=== PATIENT | male | born 1950 | race Caucasian/White ===

== ENCOUNTER 2016-11-23 18:46 | Inpatient (IN) | payer MEDICARE, MEDICAID ==
[~2016-11-23] VITALS: Ht 167.6 cm; Wt 64.9 kg
[2016-11-23] MEDS ORDERED: MAG HYDROX/AL HYDROX/SIMETH 30 ML UDC PO PRN (19:30)
[2016-11-23] MEDS ORDERED: MAGNESIUM HYDROXIDE 30 ML UDC PO PRN (19:30)
[2016-11-23 20:00] VITALS: BP 117/74
--- NOTE | 2016-11-23 20:00 | NUR ---
GPS SPEECH LANGUAGE SPECIALIST NOTES: ADMITTED A 66 YO CHILEAN SPEAKING MALE FROM [facility] ON 5150 HOLD FOR DTO AND GD. PER HOLD THE PATIENT HAS BEEN INCREASINGLY CONFUSED, PHYSICALLY AGGRESSIVE AND HOSTILE TOWARDS FAMILY MEMBERS, ATTEMPTED TO HIT THE WALL, EXPERIENCING VISUAL AND AUDITORY HALLUCINATION, TALKING TO THE WALL, RESPONDING TO INTERNAL STIMULI, PARANOID, DELUSIONAL, UNPREDICTABLE, LABILE. PATIENT BROUGHT INTO THE UNIT BY AMBULANCE STAFF VIA GURNEY.USHERED PATIENT TO BED. UPON FACE TO FACE ASSESSMENT, PATIENT NOTED TO BE ALERT AND ORIENTED X1. PATIENT IS OBSERVED TO BE RESTLESS, UNPREDICTABLE, GUARDED, RESPONDING TO INTERNAL STIMULI, PARANOID, DELUSIONAL. PATIENT UNABLE TO SIGN ADMISSION PAPERS. PATIENT THEN CHANGED TO HOSPITAL GOWN. SKIN AND BODY ASSESSMENT DONE WITH TAVO HERNANDEZ. PICTURES TAKEN AND PLACED IN THE CHART. BELONGINGS AND CONTRABAND CHECKED. Q15 MIN CHECKS INITIATED. CARE PLAN SPECIFIC INITIATED FOR THE PATIENT. LIMIT SETTING DONE. MADDIE OBREGON AND NAFISA INFORMED OF THE SAID ADMISSION. FAMILY NOTIFIED OF THE ADMISSION WELL THE UNIT AND HOSPITAL POLICIES. WILL ENDORSE PATIENT TO DAY SHIFT NURSE FOR CONTINUITY OF CARE.
[2016-11-23] MEDS ORDERED: MEMA10TA PO (20:05)
[2016-11-23] MEDS ORDERED: LATA2.5D2 EACHEYE (20:05)
[2016-11-23] MEDS ORDERED: ROSU20TA PO (20:05)
[2016-11-23] MEDS ORDERED: DORZ10DR11 EACHEYE (20:05)
[2016-11-23] MEDS ORDERED: ERGO500047 PO (20:05)
[2016-11-23] MEDS ORDERED: OLME40TA3 PO (20:05)
[2016-11-23] MEDS ORDERED: SITA1TAB6 PO (20:05)
[2016-11-23] MEDS ORDERED: ICOS1CAP PO (20:05)
[2016-11-23] MEDS ORDERED: CALC500T51 PO (20:05)
[2016-11-23] MEDS ORDERED: LURA40TA PO (20:05)
[2016-11-23] MEDS ORDERED: LATA2.5D2 LEFTEYE (20:05)
[2016-11-23] MEDS ORDERED: EMPA25TA PO (20:05)
[2016-11-23] MEDS ORDERED: TAMS0.4C34 PO (20:05)
[2016-11-23] MEDS ORDERED: EZET10TA PO (20:05)
[2016-11-23] MEDS ORDERED: METO-306 PO (20:05)
[2016-11-23] MEDS ORDERED: ESCI10TA PO (20:05)
[2016-11-23] MEDS ORDERED: DEXL60CA3 PO (20:05)
[2016-11-23] MEDS ORDERED: DUTA0.5C PO (20:05)
[2016-11-23] MEDS ORDERED: OLOP2.5D EACHEYE (20:05)
--- NOTE | 2016-11-23 21:37 | NUR ---
GUY SKELTON MADE AWARE OF THE ADMISSION AND GAVE ORDERS AND NOTIFIED TO RECONCILE MEDS.
[2016-11-23] MEDS: BLOOD SUGAR DIAGNOSTIC 1 EACH STRIP IN SCH (21:40)
[2016-11-23] MEDS ORDERED: DEXTROSE 50%-WATER 50 ML DISP.SYRIN IV PRN (22:00)
[2016-11-23] MEDS ORDERED: INSULIN REGULAR, HUMAN 100 UNIT/ML 10 ML VIAL ONE (22:38)
[2016-11-23] MEDS: INSULIN REGULAR, HUMAN 100 UNIT/ML 3 ML VIAL SQ PRN (22:54)
[2016-11-24] MEDS: BLOOD SUGAR DIAGNOSTIC 1 EACH STRIP IN SCH ×4 (07:57→21:30)
[2016-11-24 08:00] VITALS: BP 131/93
[2016-11-24] MEDS: INSULIN REGULAR, HUMAN 100 UNIT/ML 3 ML VIAL SQ PRN ×3 (08:06→21:32)
[2016-11-24] MEDS: LORAZEPAM 0.5 MG TABLET PO PRN ×2 (08:28→23:39)
--- NOTE | 2016-11-24 08:30 | NUR ---
GPS/RN PATIENT COMBATIVE, AGGRESSIVE, ANXIOUS, ADMINISTERED ATIVAN PO ORDERED, WILL CONTINUE TO MONITOR.
[2016-11-24] MEDS ORDERED: Z GUARD REMEDY 4 OZ OINT TP SCH (09:00)
[2016-11-24] MEDS: Z GUARD REMEDY 2 OZ OINT TP SCH (10:20)
--- NOTE | 2016-11-24 11:00 | NUR ---
GPS/RN PATIENT REFUSED MRSA, EXPLAINED RISKS AND BENEFITS, WILL CONTINUE TO ENCOURAGE TO COMPLY REGIMEN AND TREATMENTS.
[2016-11-24] MEDS: QUETIAPINE FUMARATE 25 MG TABLET PO SCH ×2 (11:10→16:14)
[2016-11-24] MEDS: MEMANTINE HCL 5 MG TABLET PO SCH ×2 (11:10→21:18)
--- NOTE | 2016-11-24 12:16 | NUR ---
Initial discharge plan: Pt lives with his Marika at [address] [place] [address] and per daughter, Sydni [phone] is able to return home when stablized. Pt. will be picked up by family. SW will follow up with MD and family and will help form safe and proper discharge.
--- NOTE | 2016-11-24 13:22 | NUR ---
WOUND CARE CONSULT:PATIENT SEEN AND SKIN ASSESSMENT DONE. PATIENT VERY CONFUSED, EASILY AGITATED AND UPSET, INCONTINENT, PASCUAL 15, ABLE TO TURN AND REPOSITION HOWEVER NEEDS ASSIST AND PROMPTING. SEE TODAY'S SKIN ASSESSMENT IN PCS ALONG WITH RECOMMENDATIONS. RECOMMEND MOISTURE PROTECTION WITH Z GUARD ORDERED, OFFLOADING FOR PRESSURE PREVENTION. ALL DISCUSSED WITH NURSING STAFF. MD IN AGREEMENT WITH PLAN OF CARE. Addendum: 11/24/16 at 1324 by STEPHANIE YUNG WNDNU Amended: Links added.
[2016-11-24] MEDS ORDERED: OLOPATADINE HCL 0.1% OPHTH BOTTLE EACHEYE SCH (14:00)
[2016-11-24] MEDS: EZETIMIBE 10 MG TABLET PO SCH (15:29)
[2016-11-24] MEDS: PANTOPRAZOLE 40 MG TABLET.DR PO SCH (15:29)
[2016-11-24] MEDS: DUTASTERIDE (0.5 MG) 0.5 MG CAPSULE PO SCH (15:29)
[2016-11-24] MEDS: CLOTRIMAZOLE 1% 15 GM TUBE TP SCH ×2 (15:30→17:00)
[2016-11-24 16:00] VITALS: BP 131/89
[2016-11-24 16:08] LABS: BASOPHILS % (AUTO) 0.3 % (0.0-2.0); EOSINOPHILS # (AUTO) 0.1 /CMM (0.0-0.7); EOSINOPHILS % (AUTO) 0.4 % (0.0-6.0); HEMATOCRIT 43 % (39-51); HEMOGLOBIN 14.8 g/dL (13.5-17.5); LYMPHOCYTES # (AUTO) 1.4 /CMM (0.8-4.8); LYMPHOCYTES % (AUTO) 11.1 % (20.0-44.0); MEAN CORPUSCULAR HEMOGLOBIN 30 PG (26.0-33.0); MEAN CORPUSCULAR HGB CONC 34 g/dl (31.0-36.0); MEAN CORPUSCULAR VOLUME 88 fL (80-96); MONOCYTES # (AUTO) 0.6 /CMM (0.1-1.30); NEUTROPHILS # (AUTO) 10.7 /CMM (1.8-8.9); NEUTROPHILS % (AUTO) 83.2 % (43.0-81.0); PLATELET COUNT (AUTO) 220 /CMM (150-450); RDW COEFFICIENT OF VARIATION 12.7 (11.5-15.0); RED BLOOD CELL COUNT(AUTO) 4.94 MIL/uL (4.5-6.0); WHITE BLOOD COUNT (AUTO) 12.8 K/uL (4.3-11.0)
[2016-11-24] MEDS: METFORMIN 500 MG TABLET PO SCH (16:14)
[2016-11-24] MEDS: OLOPATADINE HCL 0.1% OPHTH BOTTLE EACHEYE SCH (16:15)
[2016-11-24 16:26] LABS: CALCIUM, SERUM 9.7 mg/dL (8.5-10.1); CREATININE 0.9 mg/dL (0.6-1.3); POTASSIUM 3.8 mmol/L (3.5-5.1)
[2016-11-24] MEDS ORDERED: SITAGLIPTIN PHOSPHATE 50 MG TABLET PO SCH (17:00)
--- NOTE | 2016-11-24 17:13 | NUR ---
GPS/RN PATIENT AGGRESSIVE, COMBATIVE, STRIKING OUT, REFUSED ACCUCHECK, EXPLAINED RISKS AND BENEFITS, WILL CONTINUE TO ENCOURAGE PATIENT TO COMPLY WITH REGIMEN.
[2016-11-24 19:55] VITALS: BP 142/96
[2016-11-24] MEDS: ATORVASTATIN 10 MG TABLET PO SCH (21:19)
[2016-11-24] MEDS: TAMSULOSIN 0.4 MG CAP.SR.24H PO SCH (21:19)
[2016-11-24] MEDS: LATANOPROST EYE DROP 0.005% 2.5 ML BOTTLE LEFTEYE SCH (21:22)
[2016-11-24] MEDS ORDERED: TIMOLOL MAL/DORZOLAM HCL OPHTH 10 ML BOTTLE EACHEYE SCH (22:00)
[2016-11-24] MEDS: ZOLPIDEM TARTRATE 5 MG TABLET PO PRN (22:41)
--- NOTE | 2016-11-24 23:52 | NUR ---
GPS/RN PATIENT COMBATIVE, AGGRESSIVE, ANXIOUS, ADMINISTERED ATIVAN 1 MG PO PRN ORDERED, WILL CONTINUE TO MONITOR.
[2016-11-25 08:00] VITALS: BP 109/72
[2016-11-25] MEDS: DUTASTERIDE (0.5 MG) 0.5 MG CAPSULE PO SCH (08:18)
[2016-11-25] MEDS: MEMANTINE HCL 5 MG TABLET PO SCH ×2 (08:18→20:14)
[2016-11-25] MEDS: METFORMIN 500 MG TABLET PO SCH ×2 (08:18→16:20)
[2016-11-25] MEDS: PANTOPRAZOLE 40 MG TABLET.DR PO SCH (08:18)
[2016-11-25] MEDS: QUETIAPINE FUMARATE 25 MG TABLET PO SCH ×2 (08:18→16:20)
[2016-11-25] MEDS: CALCIUM CARBONATE (1250) 500 MG TABLET PO SCH (08:18)
[2016-11-25] MEDS: LINAGLIPTIN 5 MG TABLET PO SCH (08:18)
[2016-11-25] MEDS: EZETIMIBE 10 MG TABLET PO SCH (08:18)
[2016-11-25] MEDS: BLOOD SUGAR DIAGNOSTIC 1 EACH STRIP IN SCH ×2 (08:19→12:43)
[2016-11-25] MEDS: INSULIN REGULAR, HUMAN 100 UNIT/ML 3 ML VIAL SQ PRN ×2 (08:52→18:21)
[2016-11-25] MEDS: OLOPATADINE HCL 0.1% OPHTH BOTTLE EACHEYE SCH ×2 (08:53→16:21)
[2016-11-25] MEDS: CLOTRIMAZOLE 1% 15 GM TUBE TP SCH ×2 (08:53→16:21)
[2016-11-25 10:43] LABS: CHOLESTEROL 217 mg/dL (<200); HDL CHOLESTEROL 32 mg/dL (40-60); LDL 165 mg/dL (0-99); TRIGLYCERIDES 124 mg/dL (30-150)
[2016-11-25] MEDS ORDERED: DEXTROSE 50%-WATER 50 ML DISP.SYRIN IV PRN (13:30)
--- NOTE | 2016-11-25 13:30 | NUR ---
GPS RN NOTE PATIENT SLEEPING RESPIRATION EVEN NON LABORED BS 198 MG/DL PT NOT EATING AT THIS TIME, HOLD INSULIN MD AWARE NO NEW ORDER WILL CONTINUE MONITORING
[2016-11-25 13:55] LABS: CALCIUM, SERUM 8.9 mg/dL (8.5-10.1); POTASSIUM 3.6 mmol/L (3.5-5.1)
[2016-11-25 14:19] LABS: BASOPHILS % (AUTO) 0.2 % (0.0-2.0); EOSINOPHILS # (AUTO) 0.1 /CMM (0.0-0.7); EOSINOPHILS % (AUTO) 0.6 % (0.0-6.0); HEMATOCRIT 44 % (39-51); HEMOGLOBIN 13.4 g/dL (13.5-17.5); LYMPHOCYTES # (AUTO) 1.5 /CMM (0.8-4.8); LYMPHOCYTES % (AUTO) 16.1 % (20.0-44.0); MEAN CORPUSCULAR HEMOGLOBIN 30 PG (26.0-33.0); MEAN CORPUSCULAR HGB CONC 31 g/dl (31.0-36.0); MEAN CORPUSCULAR VOLUME 97 fL (80-96); MONOCYTES # (AUTO) 0.6 /CMM (0.1-1.30); MONOCYTES % (AUTO) 6.3 % (2.0-12.0); NEUTROPHILS # (AUTO) 7.1 /CMM (1.8-8.9); NEUTROPHILS % (AUTO) 76.8 % (43.0-81.0); PLATELET COUNT (AUTO) 211 /CMM (150-450); RDW COEFFICIENT OF VARIATION 13.9 (11.5-15.0); WHITE BLOOD COUNT (AUTO) 9.2 K/uL (4.3-11.0)
[2016-11-25 16:00] VITALS: BP 109/69
[2016-11-25] MEDS: TIMOLOL MAL/DORZOLAM HCL OPHTH 10 ML BOTTLE EACHEYE SCH (16:24)
--- NOTE | 2016-11-25 16:38 | NUR ---
GPS RN NOTE: PER DR ORDER START IV ON RIGHT ARM 22 LEOBARDO, IV SITE PATENT CLEAN NO S/S DISTRESS NOTED WILL INDORSE TO INCOMING RN FOR MONITORING
[2016-11-25] MEDS: BLOOD SUGAR DIAGNOSTIC 1 EACH STRIP VI SCH ×2 (16:41→20:15)
[2016-11-25] MEDS ORDERED: IV NS 0.9% 1,000 ML IV PRN (17:00)
[2016-11-25] MEDS ORDERED: IV NS 0.9% 1,000 ML IV ONE (17:00)
[2016-11-25] MEDS: ENOXAPARIN SODIUM 40 MG/0.4 ML DISP.SYRIN SQ SCH (18:22)
[2016-11-25] MEDS ORDERED: IV SET PRIMARY PUMP SET 1 EA INFUS.SET MC ONE (18:38)
--- NOTE | 2016-11-25 19:41 | NUR ---
GPS/RN NOTE: FAMILY VISITING, DAUGHTER AT THE BEDSIDE. NO APPARENT DISTRESS NOTED.
[2016-11-25 20:02] VITALS: BP 127/89
--- NOTE | 2016-11-25 20:12 | NUR ---
GPS/RN NOTE: DAUGHTER REQUESTED FOR ALL PATIENT'S NIGHT MEDICATIONS, FLOMAX, LIPITOR, NAMENDA, XALATAN EYE GTT, AND TO CHECK THE SUGAR LEVEL. ACCUCHECK 137 MG/DL.
[2016-11-25] MEDS: LATANOPROST EYE DROP 0.005% 2.5 ML BOTTLE LEFTEYE SCH (20:15)
[2016-11-25] MEDS: TAMSULOSIN 0.4 MG CAP.SR.24H PO SCH (20:15)
[2016-11-25] MEDS: ATORVASTATIN 10 MG TABLET PO SCH (20:15)
[2016-11-25] MEDS ORDERED: ENOXAPARIN SODIUM 40 MG/0.4 ML DISP.SYRIN SQ SCH (21:00)
[2016-11-26 06:51] LABS: BASOPHILS % (AUTO) 0.4 % (0.0-2.0); EOSINOPHILS # (AUTO) 0.3 /CMM (0.0-0.7); EOSINOPHILS % (AUTO) 3.9 % (0.0-6.0); HEMATOCRIT 40 % (39-51); HEMOGLOBIN 13.2 g/dL (13.5-17.5); LYMPHOCYTES # (AUTO) 2.4 /CMM (0.8-4.8); LYMPHOCYTES % (AUTO) 30.2 % (20.0-44.0); MEAN CORPUSCULAR HEMOGLOBIN 30 PG (26.0-33.0); MEAN CORPUSCULAR HGB CONC 33 g/dl (31.0-36.0); MEAN CORPUSCULAR VOLUME 89 fL (80-96); MONOCYTES # (AUTO) 0.5 /CMM (0.1-1.30); MONOCYTES % (AUTO) 6.4 % (2.0-12.0); NEUTROPHILS # (AUTO) 4.6 /CMM (1.8-8.9); NEUTROPHILS % (AUTO) 59.1 % (43.0-81.0); PLATELET COUNT (AUTO) 195 /CMM (150-450); RDW COEFFICIENT OF VARIATION 12.8 (11.5-15.0); RED BLOOD CELL COUNT(AUTO) 4.44 MIL/uL (4.5-6.0); WHITE BLOOD COUNT (AUTO) 7.9 K/uL (4.3-11.0)
[2016-11-26 07:06] LABS: CALCIUM, SERUM 8.8 mg/dL (8.5-10.1); CREATININE 0.8 mg/dL (0.6-1.3); MAGNESIUM 1.6 mg/dL (1.8-2.4); PHOSPHORUS 3.2 mg/dL (2.5-4.9); POTASSIUM 3.5 mmol/L (3.5-5.1)
[2016-11-26] MEDS: BLOOD SUGAR DIAGNOSTIC 1 EACH STRIP VI SCH ×4 (07:59→20:38)
[2016-11-26 08:00] VITALS: BP 114/67
[2016-11-26] MEDS: LINAGLIPTIN 5 MG TABLET PO SCH (08:06)
[2016-11-26] MEDS: MEMANTINE HCL 5 MG TABLET PO SCH ×2 (08:06→20:33)
[2016-11-26] MEDS: PANTOPRAZOLE 40 MG TABLET.DR PO SCH (08:07)
[2016-11-26] MEDS: DUTASTERIDE (0.5 MG) 0.5 MG CAPSULE PO SCH (08:07)
[2016-11-26] MEDS: EZETIMIBE 10 MG TABLET PO SCH (08:07)
[2016-11-26] MEDS: QUETIAPINE FUMARATE 25 MG TABLET PO SCH ×2 (08:07→16:14)
[2016-11-26] MEDS: METFORMIN 500 MG TABLET PO SCH ×2 (08:07→16:14)
[2016-11-26] MEDS: Z GUARD REMEDY 2 OZ OINT TP SCH (08:07)
[2016-11-26] MEDS: CALCIUM CARBONATE (1250) 500 MG TABLET PO SCH (08:07)
--- NOTE | 2016-11-26 08:30 | NUR ---
GPS/RN PATIENT REPORTS PAIN, LEFT CHEST AREA, FORMING PROCESS WORKER JOHNATAN MADE AWARE, STAT EKG AND TROPONIN ORDERED PER IMAN ISRAEL, VITAL SIGNS STABLE, BREATHING EVEN AND UNLABORED, NO MAJOR DISTRESS NOTED, WILL CONTINUE TO MONITOR.
[2016-11-26] MEDS: INSULIN REGULAR, HUMAN 100 UNIT/ML 3 ML VIAL SQ PRN ×3 (08:31→18:08)
--- NOTE | 2016-11-26 08:45 | NUR ---
GPS/RN NOTED RIGHT ARM IV ACCESS INFILTRATED, DISCOLORATION, SWELLING. DISCONTINUED IV ACCESS, ELEVATED ARM, HOT PACKS APPLIED, WILL NOTIFY LIQUOR MAKER JHONATAN, CHARGE NURSE AWARE, WILL CONTINUE TO MONITOR.
[2016-11-26] MEDS: TIMOLOL MAL/DORZOLAM HCL OPHTH 10 ML BOTTLE EACHEYE SCH ×2 (09:01→16:14)
[2016-11-26] MEDS: CLOTRIMAZOLE 1% 15 GM TUBE TP SCH ×2 (09:01→16:15)
[2016-11-26] MEDS: OLOPATADINE HCL 0.1% OPHTH BOTTLE EACHEYE SCH ×2 (09:02→16:13)
[2016-11-26] MEDS: LORAZEPAM 0.5 MG TABLET PO PRN (09:49)
--- NOTE | 2016-11-26 09:52 | NUR ---
GPS/RN PATIENT ANXIOUS, AGITATED, RESTLESS, ADMINISTERED ATIVAN PO ORDERED, WILL CONTINUE TO MONITOR.
[2016-11-26] MEDS ORDERED: MAGNESIUM OXIDE 400 MG TABLET PO ONE (12:00)
[2016-11-26] MEDS: ACETAMINOPHEN 325 MG TABLET PO PRN ×2 (12:03→23:38)
[2016-11-26 16:00] VITALS: BP 118/73
[2016-11-26 20:23] VITALS: BP 115/77
[2016-11-26] MEDS: TAMSULOSIN 0.4 MG CAP.SR.24H PO SCH (20:30)
[2016-11-26] MEDS: ATORVASTATIN 10 MG TABLET PO SCH (20:31)
[2016-11-26] MEDS: ENOXAPARIN SODIUM 40 MG/0.4 ML DISP.SYRIN SQ SCH (20:34)
[2016-11-26] MEDS: *INSULIN REGULAR(HUMULIN R)HUM 100 UNIT/ML VIAL SQ PRN (20:45)
--- NOTE | 2016-11-26 20:53 | NUR ---
GPS/RN NOTE: PATIENT'S FAMILY ASKED FOR ALL THE NIGHT MEDICATIONS PATIENT IS TAKING, INCLUDING BLOOD SUGAR. ACCUCHECK 160 MG/DL, 2 UNITS REGULAR INSULIN SC ADMINISTERED. EXPLAINED TO DAUGHTER THE REASON AND BENEFIT OF THE MEDS. DAUGHTER UNDERSTOOD TEACHING. FAMILY ASKING FOR ALL THE COPY OF MEDICATIONS PATIENT IS TAKING.
[2016-11-26] MEDS: LATANOPROST EYE DROP 0.005% 2.5 ML BOTTLE LEFTEYE SCH (21:12)
[2016-11-26] MEDS ORDERED: QUETIAPINE FUMARATE 25 MG TABLET PO SCH (22:00)
[2016-11-26] MEDS: ZOLPIDEM TARTRATE 5 MG TABLET PO PRN (23:36)
--- NOTE | 2016-11-26 23:37 | NUR ---
GPS/RN NOTE: AMBIEN 5 MG TAB 1 PO GIVEN FOR INSOMNIA, PATIENT NOT SLEEPING.
[2016-11-27 07:35] LABS: CALCIUM, SERUM 8.9 mg/dL (8.5-10.1); CREATININE 0.8 mg/dL (0.6-1.3); POTASSIUM 3.6 mmol/L (3.5-5.1)
[2016-11-27] MEDS: INSULIN REGULAR, HUMAN 100 UNIT/ML 3 ML VIAL SQ PRN ×3 (07:59→17:39)
[2016-11-27 08:00] VITALS: BP 101/69
[2016-11-27] MEDS: BLOOD SUGAR DIAGNOSTIC 1 EACH STRIP VI SCH ×4 (08:00→21:41)
[2016-11-27] MEDS: LINAGLIPTIN 5 MG TABLET PO SCH (08:39)
[2016-11-27] MEDS: DUTASTERIDE (0.5 MG) 0.5 MG CAPSULE PO SCH (08:40)
[2016-11-27] MEDS: CALCIUM CARBONATE (1250) 500 MG TABLET PO SCH (08:40)
[2016-11-27] MEDS: METFORMIN 500 MG TABLET PO SCH ×2 (08:40→17:07)
[2016-11-27] MEDS: MEMANTINE HCL 5 MG TABLET PO SCH ×2 (08:40→21:32)
[2016-11-27] MEDS: EZETIMIBE 10 MG TABLET PO SCH (08:40)
[2016-11-27] MEDS: PANTOPRAZOLE 40 MG TABLET.DR PO SCH (08:40)
[2016-11-27] MEDS: QUETIAPINE FUMARATE 25 MG TABLET PO SCH ×3 (08:41→21:32)
[2016-11-27] MEDS: TIMOLOL MAL/DORZOLAM HCL OPHTH 10 ML BOTTLE EACHEYE SCH ×2 (08:41→17:22)
[2016-11-27] MEDS: CLOTRIMAZOLE 1% 15 GM TUBE TP SCH ×2 (08:42→17:21)
[2016-11-27] MEDS: OLOPATADINE HCL 0.1% OPHTH BOTTLE EACHEYE SCH ×2 (08:42→17:22)
[2016-11-27] MEDS: Z GUARD REMEDY 2 OZ OINT TP SCH (09:07)
[2016-11-27 16:00] VITALS: BP 123/84
[2016-11-27] MEDS: ENOXAPARIN SODIUM 40 MG/0.4 ML DISP.SYRIN SQ SCH (21:31)
[2016-11-27] MEDS: *INSULIN REGULAR(HUMULIN R)HUM 100 UNIT/ML VIAL SQ PRN (21:43)
[2016-11-27] MEDS: ATORVASTATIN 10 MG TABLET PO SCH (21:47)
[2016-11-27] MEDS: TAMSULOSIN 0.4 MG CAP.SR.24H PO SCH (21:47)
[2016-11-27] MEDS: ZOLPIDEM TARTRATE 5 MG TABLET PO PRN (21:48)
[2016-11-27] MEDS: LATANOPROST EYE DROP 0.005% 2.5 ML BOTTLE LEFTEYE SCH (21:49)
[2016-11-28] MEDS ORDERED: ERGOCALCIFEROL (VITAMIN D 2) 50,000 UNIT CAPSULE PO SCH (07:30)
[2016-11-28 08:00] VITALS: BP 102/71
[2016-11-28] MEDS: MEMANTINE HCL 5 MG TABLET PO SCH ×2 (08:23→20:19)
[2016-11-28] MEDS: BLOOD SUGAR DIAGNOSTIC 1 EACH STRIP VI SCH ×4 (08:23→21:21)
[2016-11-28] MEDS: DUTASTERIDE (0.5 MG) 0.5 MG CAPSULE PO SCH (08:23)
[2016-11-28] MEDS: EZETIMIBE 10 MG TABLET PO SCH (08:23)
[2016-11-28] MEDS: METFORMIN 500 MG TABLET PO SCH ×2 (08:23→16:41)
[2016-11-28] MEDS: PANTOPRAZOLE 40 MG TABLET.DR PO SCH (08:24)
[2016-11-28] MEDS: LINAGLIPTIN 5 MG TABLET PO SCH (08:24)
[2016-11-28] MEDS: CALCIUM CARBONATE (1250) 500 MG TABLET PO SCH (08:24)
[2016-11-28] MEDS: QUETIAPINE FUMARATE 25 MG TABLET PO SCH ×4 (08:25→20:19)
[2016-11-28] MEDS: INSULIN REGULAR, HUMAN 100 UNIT/ML 3 ML VIAL SQ PRN ×3 (08:29→17:35)
[2016-11-28] MEDS: TIMOLOL MAL/DORZOLAM HCL OPHTH 10 ML BOTTLE EACHEYE SCH ×2 (08:30→16:43)
[2016-11-28] MEDS: CLOTRIMAZOLE 1% 15 GM TUBE TP SCH ×2 (08:30→16:42)
[2016-11-28] MEDS: Z GUARD REMEDY 2 OZ OINT TP SCH (08:31)
[2016-11-28] MEDS: OLOPATADINE HCL 0.1% OPHTH BOTTLE EACHEYE SCH ×2 (08:32→16:42)
[2016-11-28 16:07] VITALS: BP 110/80
[2016-11-28 20:00] VITALS: BP 131/90
[2016-11-28] MEDS: ENOXAPARIN SODIUM 40 MG/0.4 ML DISP.SYRIN SQ SCH (20:25)
[2016-11-28] MEDS: TAMSULOSIN 0.4 MG CAP.SR.24H PO SCH (21:12)
[2016-11-28] MEDS: ATORVASTATIN 10 MG TABLET PO SCH (21:12)
[2016-11-28] MEDS: LATANOPROST EYE DROP 0.005% 2.5 ML BOTTLE LEFTEYE SCH (21:19)
--- NOTE | 2016-11-28 21:41 | NUR ---
GPS RN NOTES ACCU CHECK DONE, WAS 130. NO COVERAGE NEEDED AT THIS TIME. TOOK ALL MEDICATIONS WITHOUT PROBLEMS.
[2016-11-28] MEDS: ZOLPIDEM TARTRATE 5 MG TABLET PO PRN (22:16)
[2016-11-29 06:53] LABS: BASOPHILS % (AUTO) 0.3 % (0.0-2.0); EOSINOPHILS # (AUTO) 0.2 /CMM (0.0-0.7); EOSINOPHILS % (AUTO) 2.4 % (0.0-6.0); HEMATOCRIT 39 % (39-51); HEMOGLOBIN 12.9 g/dL (13.5-17.5); LYMPHOCYTES # (AUTO) 2.2 /CMM (0.8-4.8); LYMPHOCYTES % (AUTO) 28.1 % (20.0-44.0); MEAN CORPUSCULAR HEMOGLOBIN 30 PG (26.0-33.0); MEAN CORPUSCULAR HGB CONC 33 g/dl (31.0-36.0); MEAN CORPUSCULAR VOLUME 90 fL (80-96); MONOCYTES # (AUTO) 0.5 /CMM (0.1-1.30); MONOCYTES % (AUTO) 6.9 % (2.0-12.0); NEUTROPHILS # (AUTO) 4.8 /CMM (1.8-8.9); NEUTROPHILS % (AUTO) 62.3 % (43.0-81.0); PLATELET COUNT (AUTO) 197 /CMM (150-450); RDW COEFFICIENT OF VARIATION 12.3 (11.5-15.0); RED BLOOD CELL COUNT(AUTO) 4.37 MIL/uL (4.5-6.0); WHITE BLOOD COUNT (AUTO) 7.8 K/uL (4.3-11.0)
[2016-11-29 07:21] LABS: CALCIUM, SERUM 8.8 mg/dL (8.5-10.1); CREATININE 0.8 mg/dL (0.6-1.3); MAGNESIUM 1.4 mg/dL (1.8-2.4); POTASSIUM 3.7 mmol/L (3.5-5.1)
[2016-11-29 08:28] VITALS: BP 109/72
[2016-11-29] MEDS: INSULIN REGULAR, HUMAN 100 UNIT/ML 3 ML VIAL SQ PRN ×2 (08:28→12:19)
[2016-11-29] MEDS: DUTASTERIDE (0.5 MG) 0.5 MG CAPSULE PO SCH (08:30)
[2016-11-29] MEDS: QUETIAPINE FUMARATE 25 MG TABLET PO SCH ×4 (08:30→21:47)
[2016-11-29] MEDS: MEMANTINE HCL 5 MG TABLET PO SCH ×2 (08:30→20:57)
[2016-11-29] MEDS: PANTOPRAZOLE 40 MG TABLET.DR PO SCH (08:30)
[2016-11-29] MEDS: CALCIUM CARBONATE (1250) 500 MG TABLET PO SCH (08:30)
[2016-11-29] MEDS: EZETIMIBE 10 MG TABLET PO SCH (08:30)
[2016-11-29] MEDS: LINAGLIPTIN 5 MG TABLET PO SCH (08:30)
[2016-11-29] MEDS: METFORMIN 500 MG TABLET PO SCH ×2 (08:30→16:13)
[2016-11-29] MEDS: BLOOD SUGAR DIAGNOSTIC 1 EACH STRIP VI SCH ×2 (08:31→12:17)
[2016-11-29] MEDS: OLOPATADINE HCL 0.1% OPHTH BOTTLE EACHEYE SCH ×2 (08:31→16:14)
[2016-11-29] MEDS: CLOTRIMAZOLE 1% 15 GM TUBE TP SCH ×2 (08:31→16:14)
[2016-11-29] MEDS: TIMOLOL MAL/DORZOLAM HCL OPHTH 10 ML BOTTLE EACHEYE SCH ×2 (08:31→16:14)
[2016-11-29] MEDS: Z GUARD REMEDY 2 OZ OINT TP SCH (08:32)
--- NOTE | 2016-11-29 11:12 | NUR ---
DR. RODRIGUES GAVE AN ORDER FOR THE DENIAL RIGHTS FOR ROOM SEARCH TO LOOK FOR THE MISSING CORDLESS PHONES.
[2016-11-29] MEDS ORDERED: DEXTROSE 50%-WATER 50 ML DISP.SYRIN IV PRN (12:30)
[2016-11-29] MEDS ORDERED: MAGNESIUM OXIDE 400 MG TABLET PO ONE (12:30)
[2016-11-29 16:20] VITALS: BP 113/75
[2016-11-29] MEDS: BLOOD SUGAR DIAGNOSTIC 1 EACH STRIP IN SCH ×2 (17:30→22:30)
--- NOTE | 2016-11-29 17:36 | NUR ---
GPS/RN PT REFUSED ACCUCHECK OFFERED X3. PT SPEAKS MOZAMBICAN, ALSO USED THE HELP OF ALBANIAN SPEAKING RE TURNER.
[2016-11-29 20:00] VITALS: BP 143/89
[2016-11-29] MEDS: ENOXAPARIN SODIUM 40 MG/0.4 ML DISP.SYRIN SQ SCH (21:03)
[2016-11-29] MEDS: TAMSULOSIN 0.4 MG CAP.SR.24H PO SCH (21:06)
[2016-11-29] MEDS: ATORVASTATIN 10 MG TABLET PO SCH (21:06)
[2016-11-29] MEDS: LATANOPROST EYE DROP 0.005% 2.5 ML BOTTLE LEFTEYE SCH (21:07)
[2016-11-29] MEDS: *INSULIN REGULAR(HUMULIN R)HUM 100 UNIT/ML VIAL SQ PRN (22:42)
[2016-11-30] MEDS: ZOLPIDEM TARTRATE 5 MG TABLET PO PRN ×2 (00:42→20:27)
[2016-11-30 07:10] LABS: CALCIUM, SERUM 8.8 mg/dL (8.5-10.1); CREATININE 0.8 mg/dL (0.6-1.3); POTASSIUM 3.9 mmol/L (3.5-5.1)
[2016-11-30 08:00] VITALS: BP 105/70
[2016-11-30] MEDS: BLOOD SUGAR DIAGNOSTIC 1 EACH STRIP IN SCH ×4 (08:30→21:48)
[2016-11-30] MEDS: INSULIN REGULAR, HUMAN 100 UNIT/ML 3 ML VIAL SQ PRN ×3 (08:31→21:50)
[2016-11-30] MEDS: EZETIMIBE 10 MG TABLET PO SCH (08:32)
[2016-11-30] MEDS: MEMANTINE HCL 5 MG TABLET PO SCH ×2 (08:32→20:24)
[2016-11-30] MEDS: PANTOPRAZOLE 40 MG TABLET.DR PO SCH (08:32)
[2016-11-30] MEDS: METFORMIN 500 MG TABLET PO SCH ×2 (08:32→17:00)
[2016-11-30] MEDS: LINAGLIPTIN 5 MG TABLET PO SCH (08:32)
[2016-11-30] MEDS: DUTASTERIDE (0.5 MG) 0.5 MG CAPSULE PO SCH (08:32)
[2016-11-30] MEDS: CLOTRIMAZOLE 1% 15 GM TUBE TP SCH ×2 (08:33→17:02)
[2016-11-30] MEDS: CALCIUM CARBONATE (1250) 500 MG TABLET PO SCH (08:33)
[2016-11-30] MEDS: QUETIAPINE FUMARATE 25 MG TABLET PO SCH ×4 (08:33→20:24)
[2016-11-30] MEDS: Z GUARD REMEDY 2 OZ OINT TP SCH (08:34)
[2016-11-30] MEDS: TIMOLOL MAL/DORZOLAM HCL OPHTH 10 ML BOTTLE EACHEYE SCH ×2 (08:34→17:01)
[2016-11-30] MEDS: OLOPATADINE HCL 0.1% OPHTH BOTTLE EACHEYE SCH ×2 (08:34→17:01)
[2016-11-30] MEDS: LORAZEPAM 0.5 MG TABLET PO PRN (11:00)
--- NOTE | 2016-11-30 12:09 | NUR ---
GPS/RN PT REFUSED ACCUCHECK OFFERED X3. PT IS ANGRY AND WANTS TO BE LEFT ALONE.
--- NOTE | 2016-11-30 13:05 | NUR ---
GPS/RN TRANSFERRED CARE OF THE PATIENT TO [facility] SPEAKING NURSE ELIZABETH BEASLEY PER FAMILY REQUEST.
--- NOTE | 2016-11-30 13:10 | NUR ---
RECEIVED PATIENT IN THE DINING ROOM, A/O X1, CONFUSED, NO ACUTE DISTRESS AT THIS TIME, OFFERED SOME FLUIDS, NO RESPIRATORY DISTRESS, SAFETY PRECAUTION MAINTAINED ALL THE TIME.
[2016-11-30 16:00] VITALS: BP 100/70
[2016-11-30 20:16] VITALS: BP 132/90
[2016-11-30] MEDS: LATANOPROST EYE DROP 0.005% 2.5 ML BOTTLE LEFTEYE SCH (20:25)
[2016-11-30] MEDS: ENOXAPARIN SODIUM 40 MG/0.4 ML DISP.SYRIN SQ SCH (20:25)
[2016-11-30] MEDS: ATORVASTATIN 10 MG TABLET PO SCH (20:26)
[2016-11-30] MEDS: TAMSULOSIN 0.4 MG CAP.SR.24H PO SCH (20:26)
--- NOTE | 2016-11-30 20:28 | NUR ---
Daughter requested to give all 2100 and 2200 meds together while she is present. All meds given.
--- NOTE | 2016-11-30 22:28 | NUR ---
Ambien 5 mg/po given for insomnia at 2026. Effective. Post 1 hour asleep. Will continue to monitor.
[2016-12-01 08:00] VITALS: BP 115/74
[2016-12-01] MEDS: PANTOPRAZOLE 40 MG TABLET.DR PO SCH (08:10)
[2016-12-01] MEDS: MEMANTINE HCL 5 MG TABLET PO SCH ×2 (08:10→20:37)
[2016-12-01] MEDS: CALCIUM CARBONATE (1250) 500 MG TABLET PO SCH (08:11)
[2016-12-01] MEDS: METFORMIN 500 MG TABLET PO SCH ×2 (08:11→16:20)
[2016-12-01] MEDS: LINAGLIPTIN 5 MG TABLET PO SCH (08:12)
[2016-12-01] MEDS: DUTASTERIDE (0.5 MG) 0.5 MG CAPSULE PO SCH (08:12)
[2016-12-01] MEDS: EZETIMIBE 10 MG TABLET PO SCH (08:12)
[2016-12-01] MEDS: QUETIAPINE FUMARATE 25 MG TABLET PO SCH ×3 (08:17→16:20)
[2016-12-01] MEDS: OLOPATADINE HCL 0.1% OPHTH BOTTLE EACHEYE SCH ×2 (08:19→16:25)
[2016-12-01] MEDS: TIMOLOL MAL/DORZOLAM HCL OPHTH 10 ML BOTTLE EACHEYE SCH ×2 (08:19→16:26)
[2016-12-01] MEDS: BLOOD SUGAR DIAGNOSTIC 1 EACH STRIP IN SCH ×4 (08:20→22:01)
[2016-12-01] MEDS: Z GUARD REMEDY 2 OZ OINT TP SCH (08:24)
[2016-12-01] MEDS: INSULIN REGULAR, HUMAN 100 UNIT/ML 3 ML VIAL SQ PRN ×2 (08:24→17:40)
[2016-12-01] MEDS: CLOTRIMAZOLE 1% 15 GM TUBE TP SCH ×2 (08:24→16:26)
--- NOTE | 2016-12-01 08:24 | NUR ---
[id number]: BLOOD SUGAR IS 142 AND GAVE 2 UNITS OF REGULAR INSULIN.
--- NOTE | 2016-12-01 10:55 | NUR ---
ORIANA spoke with psychiatrist today and together with ORIANA spoke with the patient. Pt. can be discharged Thursday if continues to do well. ORIANA then spoke with pt's daughter, Sydni [phone] who requested pt. to be placed in a rehabilitation center. ORIANA faxed the facility requested by the daughter, [address] [id number] . Will follow up Addendum: 12/01/16 at 1739 by DEEP GASTELUM Ray from facility reported that pt. is not able to be admitted.
--- NOTE | 2016-12-01 12:17 | NUR ---
[id number]: BLOOD SUGAR IS 130 MG/DL AND NO INSULIN REQUIRED AT THIS TIME
[2016-12-01 16:00] VITALS: BP 116/65
--- NOTE | 2016-12-01 17:41 | NUR ---
[id number]: BLOOD SUGAR IS 140 MG/DL AND GAVE 2 UNITS OF REGULAR INSULIN
--- NOTE | 2016-12-01 18:04 | NUR ---
ORIANA spoke with pt's daughter, Sydni [phone] who agrees that if no other alternatives are available for a close appropriate facility, she will pear picker the patient and take him home with home health. If pt. goes back home, a [facility] health [facility] to [phone] fax [phone].
[2016-12-01] MEDS: ENOXAPARIN SODIUM 40 MG/0.4 ML DISP.SYRIN SQ SCH (20:47)
[2016-12-01] MEDS: ATORVASTATIN 10 MG TABLET PO SCH (21:17)
[2016-12-01] MEDS: TAMSULOSIN 0.4 MG CAP.SR.24H PO SCH (21:18)
[2016-12-01] MEDS: LATANOPROST EYE DROP 0.005% 2.5 ML BOTTLE LEFTEYE SCH (21:18)
[2016-12-01] MEDS: QUETIAPINE FUMARATE 100 MG TABLET PO SCH (21:18)
[2016-12-01 21:34] VITALS: BP 132/84
[2016-12-01] MEDS: *INSULIN REGULAR(HUMULIN R)HUM 100 UNIT/ML VIAL SQ PRN (22:11)
[2016-12-02] MEDS: BLOOD SUGAR DIAGNOSTIC 1 EACH STRIP IN SCH ×4 (07:06→23:01)
[2016-12-02] MEDS: INSULIN REGULAR, HUMAN 100 UNIT/ML 3 ML VIAL SQ PRN ×2 (07:11→17:13)
[2016-12-02] MEDS: DUTASTERIDE (0.5 MG) 0.5 MG CAPSULE PO SCH (08:24)
[2016-12-02] MEDS: PANTOPRAZOLE 40 MG TABLET.DR PO SCH (08:24)
[2016-12-02] MEDS: QUETIAPINE FUMARATE 25 MG TABLET PO SCH ×3 (08:25→17:03)
[2016-12-02] MEDS: MEMANTINE HCL 5 MG TABLET PO SCH ×2 (08:25→20:22)
[2016-12-02] MEDS: METFORMIN 500 MG TABLET PO SCH ×2 (08:25→17:03)
[2016-12-02] MEDS: CALCIUM CARBONATE (1250) 500 MG TABLET PO SCH (08:25)
[2016-12-02] MEDS: LINAGLIPTIN 5 MG TABLET PO SCH (08:26)
[2016-12-02] MEDS: EZETIMIBE 10 MG TABLET PO SCH (08:26)
[2016-12-02] MEDS: Z GUARD REMEDY 2 OZ OINT TP SCH (08:27)
[2016-12-02] MEDS: OLOPATADINE HCL 0.1% OPHTH BOTTLE EACHEYE SCH ×2 (08:27→17:03)
[2016-12-02] MEDS: TIMOLOL MAL/DORZOLAM HCL OPHTH 10 ML BOTTLE EACHEYE SCH ×2 (08:27→17:04)
[2016-12-02] MEDS: CLOTRIMAZOLE 1% 15 GM TUBE TP SCH ×2 (08:27→17:04)
[2016-12-02 08:32] VITALS: BP 113/79
[2016-12-02 16:00] VITALS: BP 112/77
[2016-12-02] MEDS: ENOXAPARIN SODIUM 40 MG/0.4 ML DISP.SYRIN SQ SCH (20:24)
[2016-12-02] MEDS: TAMSULOSIN 0.4 MG CAP.SR.24H PO SCH (22:27)
[2016-12-02] MEDS: QUETIAPINE FUMARATE 100 MG TABLET PO SCH (22:28)
[2016-12-02] MEDS: ATORVASTATIN 10 MG TABLET PO SCH (22:28)
[2016-12-02] MEDS: LATANOPROST EYE DROP 0.005% 2.5 ML BOTTLE LEFTEYE SCH (22:29)
[2016-12-02] MEDS: *INSULIN REGULAR(HUMULIN R)HUM 100 UNIT/ML VIAL SQ PRN (23:05)
[2016-12-03] MEDS: BLOOD SUGAR DIAGNOSTIC 1 EACH STRIP IN SCH ×3 (07:07→16:58)
[2016-12-03] MEDS: INSULIN REGULAR, HUMAN 100 UNIT/ML 3 ML VIAL SQ PRN ×2 (07:09→16:59)
--- NOTE | 2016-12-03 07:09 | NUR ---
[id number]: BLOOD SUGAR IS 197 MG/DL AND GAVE 4 UNITS OF REGULAR INSULIN
[2016-12-03] MEDS: PANTOPRAZOLE 40 MG TABLET.DR PO SCH (07:50)
[2016-12-03 08:00] VITALS: BP 111/63
[2016-12-03] MEDS: OLOPATADINE HCL 0.1% OPHTH BOTTLE EACHEYE SCH ×2 (08:31→16:51)
[2016-12-03] MEDS: TIMOLOL MAL/DORZOLAM HCL OPHTH 10 ML BOTTLE EACHEYE SCH ×2 (08:31→16:51)
[2016-12-03] MEDS: METFORMIN 500 MG TABLET PO SCH ×2 (08:31→16:47)
[2016-12-03] MEDS: MEMANTINE HCL 5 MG TABLET PO SCH (08:31)
[2016-12-03] MEDS: DUTASTERIDE (0.5 MG) 0.5 MG CAPSULE PO SCH (08:31)
[2016-12-03] MEDS: QUETIAPINE FUMARATE 25 MG TABLET PO SCH ×3 (08:32→16:47)
[2016-12-03] MEDS: Z GUARD REMEDY 2 OZ OINT TP SCH (08:32)
[2016-12-03] MEDS: LINAGLIPTIN 5 MG TABLET PO SCH (08:32)
[2016-12-03] MEDS: EZETIMIBE 10 MG TABLET PO SCH (08:32)
[2016-12-03] MEDS: CLOTRIMAZOLE 1% 15 GM TUBE TP SCH ×2 (08:32→16:52)
[2016-12-03] MEDS: CALCIUM CARBONATE (1250) 500 MG TABLET PO SCH (08:32)
--- NOTE | 2016-12-03 08:35 | NUR ---
[id number]: PT REFUSED COSOPT EYE DROPS, PATANOL 0.1 % SOLN OPHTH, AVODART 0.5 MG, TRADJENTA 5 MG, ZETIA 10 MG, GLUCOPHAGE 1,000MG, NAMENDA 10 MG, OSCAL 500 MG, SEROQUEL 25 MG, LOTRIMIN 1% CREAM, REMEDY Z GUARD. NOTIFIED DR. OBREGON. NO NEW ORDERS GIVEN AT THIS TIME.
[2016-12-03 09:28] VITALS: BP 111/63
--- NOTE | 2016-12-03 10:32 | NUR ---
[id number]: NOTIFIED GUY SKELTON ABOUT LAB RESULTS FOR TODAY: MAGNESIUM=1.5. PENDING RETURN PHONE CALL.
[2016-12-03] MEDS ORDERED: MAGNESIUM OXIDE 400 MG TABLET PO ONE (11:30)
--- NOTE | 2016-12-03 12:00 | NUR ---
faxed home health order to [facility] fax [phone]).
--- NOTE | 2016-12-03 12:19 | NUR ---
Per patient's dtr Madison, she stated that her mother (patient's ) has spoken to patient's doctor and they will coordinate for home health. Madison stated that referral is not necessary. Informed home health agency that family will proceed with home health. Madison stated that she will be here around 6/6:15pm to continuous pickling line pickler the patient.
--- NOTE | 2016-12-03 12:35 | NUR ---
[id number]: PT REFUSED ACCUCHECK.
[2016-12-03 17:10] VITALS: BP 124/76
[2016-12-03 17:14] VITALS: BP 124/76
--- NOTE | 2016-12-03 17:30 | NUR ---
[id number]: PT IS 66 YEARS OLD MALE DISCHARGE BACK HOME WITH HIS LENI AND DAUGHTER LANCE [id number] [facility] [address], [place], [place]. [id number] IN STABLE CONDITION. COMPLAINT WITH MEDICATIONS, COOPERATIVE WITH TREATMENT PLANS. PT DENIES SI/HI. BEHAVIOR IMPROVED, PSYCHIATRIC TX PLANS MET, MEDICAL TX PLANS DEFERRED FOR CONTINUAL MONITORING. EDUCATED PT ABOJUT AFTER CARE PLAN AND COPY PROVIDED. RETURNED PERSONAL BELONGINGS TO PLAN AND COPY PROVIDED. MEDICATIONS RECONCILED WITH DR. OBREGON AND HEAD INSULATION BOARD SAW OPERATOR GUY SKELTON. PT REFUSED TO SIGN DISCHARGE PAPERWORK. SKIN ASSESSMENT DONE. PT LEFT THE UNIT ACCOMPANIED BY STAFF AND DAUGHTER LANCE VIA PRIVATE CAR.
--- NOTE | 2016-12-04 11:01 | NUR ---
Discharge Note: Patient was discharged (12/03/2016) back home to [facility] [place] [address] and was picked up by his daughter Madison. Pt. agreed with discharge plan and denied suicidal/homicidal ideations. Dtr denied home health referral stating that she will follow up with patient's physician for referral.
== END 2016-12-03 17:30 | disposition home or self-care (01) | DRG 885 ==
LOC: GPS 18:46
PROVIDERS: ADMIT Psychiatry & Neurology Psychiatry; ATTEND Internal Medicine
DX: F29 Unspecified psychosis not due to a substance or known physiological condition (principal); F02.81 Dementia in other diseases classified elsewhere, unspecified severity, with behavioral disturbance; E11.65 Type 2 diabetes mellitus with hyperglycemia; G93.40 Encephalopathy, unspecified; E87.2 Acidosis; E78.5 Hyperlipidemia, unspecified; E83.42 Hypomagnesemia; G30.9 Alzheimer's disease, unspecified; I10 Essential (primary) hypertension; K21.9 Gastro-esophageal reflux disease without esophagitis; N40.0 Benign prostatic hyperplasia without lower urinary tract symptoms; D72.829 Elevated white blood cell count, unspecified; F32.9 Major depressive disorder, single episode, unspecified; H40.9 Unspecified glaucoma; L40.9 Psoriasis, unspecified; Z79.899 Other long term (current) drug therapy; Z73.6 Limitation of activities due to disability
CPT/HCPCS: 36415; 71010-TC; 80048-TC; 80061-TC; 82962-TC; 83735-TC; 84100-TC; 84484-TC; 85025-TC; 97001-TC; 97116-TC; 97530-TC; J1650; J1815; J7030

== ENCOUNTER 2017-10-06 12:43 | Inpatient (IN) | payer MEDICARE, MEDICAID ==
[~2017-10-06] VITALS: Ht 167.6 cm; Wt 65.3 kg
[~2017-10-06 12:43] MED LIST: CALC500T51 PO; DEXL60CA3 PO; DORZ10DR11 EACHEYE; DUTA0.5C PO; EMPA25TA PO; ERGO500040 PO; EZET10TA14 PO; ICOS1CAP PO; LATA2.5D2 LEFTEYE; METO-358 PO; OLME40TA12 PO; OLOP2.5D EACHEYE; ROSU20TA PO; SITA1TAB6 PO; TAMS0.4C34 PO
--- NOTE | 2017-10-06 12:55 | NUR ---
BB FAMILY C/O INCREASED AGITATION/AGGRESSION WORSENING X COUPLE MONTHS. PATIENT IS A/OX 2, BREATHING EVEN AND UNLABORED, NO SOB, NAD. CALM AND COOPERATIVE AT THIS TIME. VITALS STABLE. SAFETY AND COMFORT MEASURES IN PLACE. AWAITING MD ORDERS.
--- NOTE | 2017-10-06 13:03 | NUR ---
CORK GRINDER AT BEDSIDE FOR BLOOD DRAW.
[2017-10-06 13:22] LABS: BASOPHILS % (AUTO) 0.3 % (0.0-2.0); EOSINOPHILS # (AUTO) 0.1 /CMM (0.0-0.7); EOSINOPHILS % (AUTO) 1.6 % (0.0-6.0); HEMATOCRIT 40 % (39-51); HEMOGLOBIN 13.4 g/dL (13.5-17.5); LYMPHOCYTES # (AUTO) 1.9 /CMM (0.8-4.8); LYMPHOCYTES % (AUTO) 30.5 % (20.0-44.0); MEAN CORPUSCULAR HEMOGLOBIN 30 PG (26.0-33.0); MEAN CORPUSCULAR HGB CONC 34 g/dl (31.0-36.0); MEAN CORPUSCULAR VOLUME 89 fL (80-96); MONOCYTES # (AUTO) 0.3 /CMM (0.1-1.30); NEUTROPHILS % (AUTO) 62.6 % (43.0-81.0); PLATELET COUNT (AUTO) 183 /CMM (150-450); RDW COEFFICIENT OF VARIATION 13.1 (11.5-15.0); RED BLOOD CELL COUNT(AUTO) 4.49 MIL/uL (4.5-6.0); WHITE BLOOD COUNT (AUTO) 6.4 K/uL (4.3-11.0)
[2017-10-06 13:23] LABS: CALCIUM, SERUM 8.9 mg/dL (8.5-10.1); CARBON DIOXIDE 28 mmol/L (21-32); CHLORIDE 103 mmol/L (98-107); CREATININE 1.1 mg/dL (0.6-1.3); GLUCOSE 224 mg/dL (74-106); POTASSIUM 4.3 mmol/L (3.5-5.1); SODIUM SERUM 140 mmol/L (136-145); UREA NITROGEN, BLOOD 23 mg/dL (7-18)
[2017-10-06 13:24] LABS: ALCOHOL, BLOOD < 3 mg/dL (0-0)
[2017-10-06] MEDS ORDERED: OLANZAPINE 5 MG/TAB.RAPDIS ONE (13:51)
[2017-10-06] MEDS ORDERED: OLANZAPINE 5 MG/TAB.RAPDIS PO ONE (14:00)
[2017-10-06] MEDS ORDERED: QUET25TA PO (14:04)
[2017-10-06] MEDS ORDERED: METO-357 PO (14:04)
[2017-10-06] MEDS ORDERED: ALPR1TAB2 PO (14:04)
[2017-10-06] MEDS ORDERED: ASPI-1169 PO (14:04)
[2017-10-06] MEDS ORDERED: LURA40TA PO (14:04)
[2017-10-06] MEDS ORDERED: OLME1TAB52 PO (14:04)
[2017-10-06] MEDS ORDERED: MEMA1CAP2 PO (14:04)
[2017-10-06] MEDS ORDERED: QUET100T PO (14:04)
[2017-10-06] MEDS ORDERED: HALO2TAB PO (14:04)
--- NOTE | 2017-10-06 14:06 | NUR ---
CALLED CELIA UNION REPRESENTATIVE.ETA OF 45 MINS
--- NOTE | 2017-10-06 14:25 | NUR ---
GPS/RN PATIENT ADMITTED ON A 5150 HOLD FOR DTO,GD AND DTS, UNDER THE CARE OF DR TREVINO, AND DR LUCAS. BOTH DR'S AWARE OF NEW ADMISSION, MEDICATIONS IN SYSTEM. PER HOLD PATIENT STATED THAT PEOPLE ARE TRYING TO KILL HIM, HE IS BEING AGGRESSIVE AT HOME, YELLING SCREAMING AT DAUGHTER AND AND RUNNING OUT INTO THE STREET. UPON FACE TO FACE ASSESSMENT PATIENT IS ALERT X 1,AMBULATORY, STABLE CONDITION, ANXIOUS, AGITATED,DISORGANIZED, CONFUSED, TRIED TO DRINK LOTION AND SHAMPOO. REFUSED TO SIGN ADMISSION PAPER WORK, CO SIGNED BY 2 RN, BELONGINGS COLLECTED. PATIENT DENIES SI/HI/AH UPON ADMISSION. PATIENT IN ROOM, DAUGHTER AT BEDSIDE. PATIENT IS ON 1:1 STATUS, WILL CONTINUE Q 15 MIN CHECKS FOR SAFETY AND BEHAVIOR . Addendum: 10/06/17 at 1847 by NIKKI LISA RN 1615 PATIENT ARRIVED ON UNIT. NOTIFIED [facility], AWAITING CALLBACK FROM DR LUCAS TO RECONCILE MEDS. Addendum: 10/06/17 at 1938 by NIKKI LISA RN PATIENT REFUSED SKIN ASSESSMENT
--- NOTE | 2017-10-06 14:50 | NUR ---
URINE OBTAINED AND SENT TO LAB.
[2017-10-06 14:58] LABS: APPEARANCE,URINE Clear (CLEAR); BILIRUBIN,URINE Negative (NEGATIVE); BLOOD, URINE Trace-lysed Ery/uL (NEGATIVE); COLOR,URINE Yellow (YELLOW); KETONES,URINE Negative (NEGATIVE); LEUKOCYTE ESTERASE ,URINE Trace (NEGATIVE); NITRITE, URINE Negative (NEGATIVE); PROTEIN,URINE Negative (NEGATIVE); UGLUCOSE 500 MG/DL mg/dL (NEGATIVE); UROBILINOGEN,URINE 0.2 EU/dL (0.2)
[2017-10-06 15:04] LABS: BACTERIA,URINE Few /HPF (None Seen); RBC,URINE 0-2 /HPF (0-2); SQUAMOUS EPITHELIAL CELL,UR Moderate /HPF (None Seen)
--- NOTE | 2017-10-06 15:50 | NUR ---
REPORT GIVEN TO ARNOLD TURNER FOR ESCOBAR.
[2017-10-06 16:15] VITALS: BP 154/82
--- NOTE | 2017-10-06 16:15 | NUR ---
PATIENT TRANSPORTED TO [facility] VIA WHEELCHAIR. RNARNOLD TO PROVIDE ESCOBAR.
[2017-10-06] MEDS ORDERED: MAGNESIUM HYDROXIDE 30 ML UDC PO PRN (16:30)
[2017-10-06] MEDS ORDERED: MAG HYDROX/AL HYDROX/SIMETH 30 ML UDC PO PRN (16:30)
[2017-10-06] MEDS ORDERED: ACETAMINOPHEN 325 MG TABLET PO PRN (16:30)
[2017-10-06] MEDS: LORAZEPAM 0.5 MG TABLET PO PRN (20:04)
[2017-10-06] MEDS: ASPIRIN 81 MG TAB.CHEW PO SCH (20:04)
--- NOTE | 2017-10-06 20:19 | NUR ---
PATIENT IS PACING ALONG THE UNIT,WANDERING ROOM TO ROOM,RESTLESS,ANXIOUS,APPEARS TO BE CONFUSED,DISORGANIZE THOUGHT PROCESS,UNABLE TO FOLLOW DIRECTIONS,PREOCCUPIED TO HIS OWN THOUGHTS ,COMBATIVE AND AGGRESSIVE TOWARDS STAFF AND OTHER RESIDENTS .PATIENT WAS PLACED ON 1:1 SITTER FOR SAFETY.WILL CONTINUE TO MONITOR Q15 MIN ROUNDS FOR SAFETY.
[2017-10-06 20:38] VITALS: BP 128/66
--- NOTE | 2017-10-06 21:00 | NUR ---
GPS RN NOTES: SKIN BODY ASSESSMENT DONE. GOOD SKIN CARE RENDERED. WILL CONTINUE TO MONITOR
[2017-10-06] MEDS: TEMAZEPAM 7.5 MG CAPSULE PO PRN (21:19)
[2017-10-06] MEDS: TAMSULOSIN 0.4 MG CAP.SR.24H PO SCH (21:20)
[2017-10-06] MEDS: LATANOPROST EYE DROP 0.005% 2.5 ML BOTTLE LEFTEYE SCH (21:35)
[2017-10-07 08:00] VITALS: BP 105/65
[2017-10-07] MEDS: METOPROLOL SUCCINATE 50 MG TAB.SR.24H PO SCH (08:32)
[2017-10-07] MEDS: ASPIRIN 81 MG TAB.CHEW PO SCH (08:32)
[2017-10-07] MEDS: EZETIMIBE 10 MG TABLET PO SCH (08:32)
[2017-10-07] MEDS: Z GUARD REMEDY 4 OZ OINT TP SCH ×2 (08:32→21:00)
[2017-10-07] MEDS: DUTASTERIDE (0.5 MG) 0.5 MG CAPSULE PO SCH (08:32)
[2017-10-07] MEDS: LATANOPROST EYE DROP 0.005% 2.5 ML BOTTLE LEFTEYE SCH ×2 (08:33→21:32)
[2017-10-07] MEDS ORDERED: METFORMIN HCL PO SCH (09:00)
[2017-10-07] MEDS ORDERED: SITAGLIPTIN PHOS PO SCH (09:00)
[2017-10-07] MEDS ORDERED: Icosapent Ethyl (Vascepa) 1 GM PO SCH (09:00)
--- NOTE | 2017-10-07 13:28 | NUR ---
WOUND CARE CONSULT: PT REFUSED SKIN ASSESSMENT. PT IS AMBULATORY AND CONTINENT. WILL SEE PRN.
[2017-10-07] MEDS: LORAZEPAM 0.5 MG TABLET PO PRN (14:26)
--- NOTE | 2017-10-07 14:31 | NUR ---
PATIENT IS AGITATED, LORAZEPAM 0.5MG GIVEN. PATIENT SPIT IT OUT, HAD TO PULL ONE MORE FROM OMNICELL.
[2017-10-07] MEDS ORDERED: LORAZEPAM INJ 2 MG/ML VIAL IM PRN (15:00)
[2017-10-07] MEDS ORDERED: OLANZAPINE 10 MG VIAL IM ONE (15:00)
--- NOTE | 2017-10-07 15:19 | NUR ---
PATIENT WAS VERY AGITATED AND COMBATIVE. DR TREVINO ORDERED ZYPREXA 5 MG AND ATIVAN 1MG IM. INJECTION JUST GIVEN.
[2017-10-07] MEDS: DIVALPROEX SODIUM 250 MG TABLET.DR PO SCH (17:21)
[2017-10-07] MEDS: QUETIAPINE FUMARATE 25 MG TABLET PO SCH (17:21)
[2017-10-07] MEDS: METFORMIN 500 MG TABLET PO SCH (18:48)
--- NOTE | 2017-10-07 19:20 | NUR ---
GPS/PICKING BELT OPERATOR; RECEIVED PT FROM THE DAY SHIFT RN REPORTS. AT THIS TIME PT IN BED SLEEPING BUT AROUSABLE AND RESPONSIVE VERBALLY BUT EASILY AGITATED AND CONFUSED. BREATHING NON LABORED. BED ON LOWER POSITION AND LOCKED FOR SAFETY. SIDE RAILS X 3 ARE UP FOR SAFETY. SITTER PRESENT IN THE ROOM. WILL CONTINUE TO MONITOR.
[2017-10-07 20:55] VITALS: BP 105/67
[2017-10-07] MEDS: TAMSULOSIN 0.4 MG CAP.SR.24H PO SCH (22:25)
[2017-10-07] MEDS: QUETIAPINE FUMARATE 100 MG TABLET PO SCH (22:26)
--- NOTE | 2017-10-08 05:30 | NUR ---
GPS/SHUTTLE BUGGY OPERATOR; NARES SWAB OBTAINED FOR MRSA.
--- NOTE | 2017-10-08 06:35 | NUR ---
GPS/YOLK SPRAY DRIER; SLEPT FOR 9 HOURS. SITTER PRESENT AT ALL TIMES. WILL ENDORSE TO THE DAY SHIFT NURSE.
[2017-10-08 08:00] VITALS: BP 127/66
[2017-10-08] MEDS: DIVALPROEX SODIUM 250 MG TABLET.DR PO SCH ×3 (08:30→16:10)
[2017-10-08] MEDS: METFORMIN 500 MG TABLET PO SCH ×2 (08:30→16:10)
[2017-10-08] MEDS: LINAGLIPTIN 5 MG TABLET PO SCH (08:30)
[2017-10-08] MEDS: DUTASTERIDE (0.5 MG) 0.5 MG CAPSULE PO SCH (08:31)
[2017-10-08] MEDS: ASPIRIN 81 MG TAB.CHEW PO SCH (08:31)
[2017-10-08] MEDS: LATANOPROST EYE DROP 0.005% 2.5 ML BOTTLE LEFTEYE SCH ×2 (08:31→21:26)
[2017-10-08] MEDS: Z GUARD REMEDY 4 OZ OINT TP SCH (08:31)
[2017-10-08] MEDS: METOPROLOL SUCCINATE 50 MG TAB.SR.24H PO SCH (08:31)
[2017-10-08] MEDS: EZETIMIBE 10 MG TABLET PO SCH (08:31)
[2017-10-08] MEDS: QUETIAPINE FUMARATE 25 MG TABLET PO SCH ×2 (08:35→16:10)
[2017-10-08 09:56] LABS: ALBUMIN 3.3 g/dL (3.4-5.0); BILIRUBIN,TOTAL 0.6 mg/dL (0.2-1.0); CALCIUM, SERUM 9.1 mg/dL (8.5-10.1); CREATININE 0.9 mg/dL (0.6-1.3); POTASSIUM 3.9 mmol/L (3.5-5.1); TOTAL PROTEIN, SERUM 7.6 g/dL (6.4-8.2)
--- NOTE | 2017-10-08 10:46 | NUR ---
PATIENT IS COMBATIVE, AGGRESSIVE, AND NON COMPLIANT. DOCTOR BELINDA WAS CALLED AND HE ORDERED ZYPREXA 5MG IM INJECTION. Addendum: 10/08/17 at 1051 by JINNY ZURITA RN PT. STRIKING STAFFS AND AGITATED.
--- NOTE | 2017-10-08 10:59 | NUR ---
ZYPREXA 5MG IM GIVEN.
[2017-10-08] MEDS ORDERED: OLANZAPINE 10 MG VIAL IM ONE (11:00)
--- NOTE | 2017-10-08 12:22 | NUR ---
Initial Discharge Note: Patient resides at [address] [place] [id number]. Patient lives there with his , Marika. SW spoke with patient's daughter, Sydni [phone], who stated that the family is unsure if patient will be returning home or if he will need SNF placement. Sydni stated that the family is most interested in the [facility], as it is very close to their residence. However, Sydni stated that the family is open to the [facility] area as well. ORIANA to follow up with MD and to facilitate safe and proper discharge.
[2017-10-08 14:18] LABS: CHOLESTEROL 199 mg/dL (<200); HDL CHOLESTEROL 39 mg/dL (40-60); LDL 140 mg/dL (0-99); TRIGLYCERIDES 138 mg/dL (30-150)
[2017-10-08] MEDS: LORAZEPAM 0.5 MG TABLET PO PRN (14:47)
--- NOTE | 2017-10-08 14:48 | NUR ---
PATIENT IS GETTING AGGRESSIVE AND COMBATIVE. LORAZEPAM 0.5MG GIVEN.
[2017-10-08 15:58] VITALS: BP 112/87
[2017-10-08 20:00] VITALS: BP 106/59
[2017-10-08] MEDS: QUETIAPINE FUMARATE 100 MG TABLET PO SCH (22:00)
[2017-10-08] MEDS: TAMSULOSIN 0.4 MG CAP.SR.24H PO SCH (22:00)
--- NOTE | 2017-10-08 22:50 | NUR ---
UNABLE TO ADMINISTER NIGHT MEDS AT THIS TIME, PATIENT SLEEPING .
--- NOTE | 2017-10-09 03:27 | NUR ---
SEROQUEL 100 MG TAB AND FLOMAX 0.4 MG CAP WERE NOT ADMINISTERED, ATTEMPTED 2X, AND CALLED PATIENT'S NAME, NOT PAYING ATTENTION, REFUSED TO TAKE HIS MEDICATIONS.
[2017-10-09] MEDS: Z GUARD REMEDY 4 OZ OINT TP SCH ×3 (05:04→21:20)
--- NOTE | 2017-10-09 07:30 | NUR ---
RN NOTE : STAFF DESIGN STUDIO CONSULTANT REPORTED PATIENT IN SHOWER WAS AGITATED AND FELL ON THE FLOOR AND HIT HIS HEAD TO THE WALL BODY ASSESSMENT DONE NO SWELLING OR BRUISE NOTED A WOUND 1CM X0.5CM RIGHT FOREHEAD ABOVE RIGHT EYEBROW BLEEDING CLEANSE WITH NORMAL SALINE AND APPLIED DRESSING . NOTIFIED WITH NEW ORDER CT HEAD WITHOUT CONTRAST STAT ALL ORDERS CARRIED OUT BP 144/73 ,PULSE 96,R 18 TEMP 98.3.DAUGHTER , FLATWORK SUPERVISOR AND CHARGE NURSE NOTIFIED.WILL CONTINUE TO MONITOR FOR SAFTEY PATIENT ON 1:1 SITTER.
[2017-10-09 08:00] VITALS: BP 144/73
[2017-10-09] MEDS: METFORMIN 500 MG TABLET PO SCH ×2 (09:50→17:00)
[2017-10-09] MEDS: LINAGLIPTIN 5 MG TABLET PO SCH (09:50)
[2017-10-09] MEDS: ASPIRIN 81 MG TAB.CHEW PO SCH (09:53)
[2017-10-09] MEDS: EZETIMIBE 10 MG TABLET PO SCH (09:53)
[2017-10-09] MEDS: DUTASTERIDE (0.5 MG) 0.5 MG CAPSULE PO SCH (09:53)
[2017-10-09] MEDS: DIVALPROEX SODIUM 250 MG TABLET.DR PO SCH ×3 (09:53→17:00)
[2017-10-09] MEDS: METOPROLOL SUCCINATE 50 MG TAB.SR.24H PO SCH (09:53)
[2017-10-09] MEDS: QUETIAPINE FUMARATE 25 MG TABLET PO SCH ×3 (09:53→17:00)
[2017-10-09] MEDS: LATANOPROST EYE DROP 0.005% 2.5 ML BOTTLE LEFTEYE SCH ×2 (09:55→21:20)
[2017-10-09] MEDS: ERGOCALCIFEROL (VITAMIN D 2) 50,000 UNIT CAPSULE PO SCH (09:55)
[2017-10-09 16:00] VITALS: BP 100/73
[2017-10-09 20:00] VITALS: BP 116/75
[2017-10-09] MEDS: TEMAZEPAM 7.5 MG CAPSULE PO PRN (21:40)
[2017-10-09] MEDS: QUETIAPINE FUMARATE 100 MG TABLET PO SCH (21:40)
[2017-10-09] MEDS: TAMSULOSIN 0.4 MG CAP.SR.24H PO SCH (21:40)
[2017-10-10 08:00] VITALS: BP 110/75
[2017-10-10] MEDS: LATANOPROST EYE DROP 0.005% 2.5 ML BOTTLE LEFTEYE SCH ×2 (08:16→20:47)
[2017-10-10] MEDS: DIVALPROEX SODIUM 250 MG TABLET.DR PO SCH ×3 (08:17→17:18)
[2017-10-10] MEDS: DUTASTERIDE (0.5 MG) 0.5 MG CAPSULE PO SCH (08:17)
[2017-10-10] MEDS: EZETIMIBE 10 MG TABLET PO SCH (08:17)
[2017-10-10] MEDS: LINAGLIPTIN 5 MG TABLET PO SCH (08:17)
[2017-10-10] MEDS: METFORMIN 500 MG TABLET PO SCH ×2 (08:18→17:18)
[2017-10-10] MEDS: ASPIRIN 81 MG TAB.CHEW PO SCH (08:18)
[2017-10-10] MEDS: QUETIAPINE FUMARATE 25 MG TABLET PO SCH ×3 (08:18→17:18)
[2017-10-10] MEDS: METOPROLOL SUCCINATE 50 MG TAB.SR.24H PO SCH (08:18)
[2017-10-10] MEDS: Z GUARD REMEDY 4 OZ OINT TP SCH ×2 (08:19→20:48)
[2017-10-10] MEDS: LORAZEPAM 0.5 MG TABLET PO PRN (08:32)
--- NOTE | 2017-10-10 08:35 | NUR ---
GPS RN NOTE: PATIENT RESTLESS AND AGITATED ATIVAN PO PRN GIVEN PER ORDER WILL CONTINUE MONITORING FOR SAFETY AND BEHAVIOR Q 15 MIN
[2017-10-10 16:00] VITALS: BP 108/70
[2017-10-10] MEDS ORDERED: DEXTROSE 50%-WATER 50 ML DISP.SYRIN IV PRN (16:00)
[2017-10-10] MEDS: BLOOD SUGAR DIAGNOSTIC 1 EACH STRIP IN SCH ×2 (17:18→21:44)
[2017-10-10] MEDS: INSULIN REGULAR, HUMAN 100 UNIT/ML 3 ML VIAL SQ PRN ×2 (17:24→21:46)
[2017-10-10 20:00] VITALS: BP 125/67
--- NOTE | 2017-10-10 21:46 | NUR ---
ACCUCHECK 197 MG/DL, 3 UNITS REG. INSULIN SC ADMINISTERED. HS SNACKS GIVEN
[2017-10-10] MEDS: QUETIAPINE FUMARATE 100 MG TABLET PO SCH (21:57)
[2017-10-10] MEDS: TAMSULOSIN 0.4 MG CAP.SR.24H PO SCH (21:57)
[2017-10-11] MEDS: BLOOD SUGAR DIAGNOSTIC 1 EACH STRIP IN SCH ×4 (07:30→22:01)
[2017-10-11 08:00] VITALS: BP 120/60
--- NOTE | 2017-10-11 10:00 | NUR ---
NURSING NOTE UNABLE TO GIVE PT MORNING MEDS DUE TO PT BEING COMBATIVE, NON COMPLIANT, NON-REDIRECTABLE, SWINGING AT 1;1, WILL TRY AGAIN LATER
[2017-10-11] MEDS: DUTASTERIDE (0.5 MG) 0.5 MG CAPSULE PO SCH (11:21)
[2017-10-11] MEDS: DIVALPROEX SODIUM 250 MG TABLET.DR PO SCH ×3 (11:21→18:07)
[2017-10-11] MEDS: LINAGLIPTIN 5 MG TABLET PO SCH (11:21)
[2017-10-11] MEDS: ASPIRIN 81 MG TAB.CHEW PO SCH (11:22)
[2017-10-11] MEDS: METFORMIN 500 MG TABLET PO SCH ×2 (11:22→18:08)
[2017-10-11] MEDS: EZETIMIBE 10 MG TABLET PO SCH (11:22)
[2017-10-11] MEDS: QUETIAPINE FUMARATE 25 MG TABLET PO SCH ×3 (11:23→18:07)
--- NOTE | 2017-10-11 11:30 | NUR ---
NURSING NOTE WAS ABLE TO GIVE MORNING MEDS TO PT BY CRUSHING THEM AND MIXING IN APPLE SAUCE, WITH HELP OF NURSING AID PT TOOK MEDS, WILL CONTINUE TO MONITOR PT FOR SAFETY
[2017-10-11] MEDS: METOPROLOL SUCCINATE 50 MG TAB.SR.24H PO SCH (11:46)
[2017-10-11] MEDS: LATANOPROST EYE DROP 0.005% 2.5 ML BOTTLE LEFTEYE SCH ×2 (11:46→21:12)
[2017-10-11] MEDS: Z GUARD REMEDY 4 OZ OINT TP SCH ×2 (11:46→21:12)
--- NOTE | 2017-10-11 14:00 | NUR ---
NURSING NOTE HAVE NOT BEEN ABLE TO DO ACCUCHEK ON PT, RANDOM GLUCOSE HAS BEEN ORDERED PER MD, PT REFUSED MORNING LABS, WILL TRY AGAIN THIS AFTERNOON.
--- NOTE | 2017-10-11 15:00 | NUR ---
NURSING NOTE PT'S DAUGHTER CALLED STATING SHE WANTS PT TO HAVE A CROISSANT EVERY 2 HOURS TO HELP CALM PT DOWN, WILL FOLLOW DIRECTIONS.
[2017-10-11] MEDS: INSULIN REGULAR, HUMAN 100 UNIT/ML 3 ML VIAL SQ PRN ×2 (17:03→22:05)
--- NOTE | 2017-10-11 17:15 | NUR ---
NURSING NOTE RANDOM GLUCOSE TEST WAS DONE, BG 260 MG/DL, ADMINISTERED 6 UNITS OF REGULAR INSULIN PER MD ORDER
--- NOTE | 2017-10-11 17:50 | NUR ---
NURSING NOTE WAS ABLE TO DO FINGERSTICK CHECK, BG 286 MG/DL, NO INSULIN ADMINISTERED DUE TO EARLIER DOSE GIVEN AT 1700, WILL CONTINUE TO MONITOR
[2017-10-11 19:46] VITALS: BP 103/50
[2017-10-11] MEDS: TAMSULOSIN 0.4 MG CAP.SR.24H PO SCH (21:14)
[2017-10-11] MEDS: QUETIAPINE FUMARATE 100 MG TABLET PO SCH (21:14)
[2017-10-11] MEDS: LORAZEPAM 0.5 MG TABLET PO PRN (21:14)
--- NOTE | 2017-10-11 23:08 | NUR ---
Pt restless and combative @ 2113. Ativan 0.5 mg/po prn given. Effective. Post 1 hour pt calm and asleep in bed easy to arouse. Will continue to monitor.
[2017-10-12 08:00] VITALS: BP 105/61
[2017-10-12] MEDS: METOPROLOL SUCCINATE 50 MG TAB.SR.24H PO SCH (09:00)
[2017-10-12] MEDS: HYDROCHLOROTHIAZIDE 25 MG TABLET PO SCH (09:00)
[2017-10-12] MEDS: VALSARTAN 80 MG TABLET PO SCH (09:00)
[2017-10-12] MEDS: BLOOD SUGAR DIAGNOSTIC 1 EACH STRIP IN SCH ×4 (09:17→21:59)
[2017-10-12] MEDS: DIVALPROEX SODIUM 250 MG TABLET.DR PO SCH ×3 (09:18→16:52)
[2017-10-12] MEDS: EZETIMIBE 10 MG TABLET PO SCH (09:18)
[2017-10-12] MEDS: QUETIAPINE FUMARATE 25 MG TABLET PO SCH ×3 (09:18→16:52)
[2017-10-12] MEDS: LINAGLIPTIN 5 MG TABLET PO SCH (09:18)
[2017-10-12] MEDS: METFORMIN 500 MG TABLET PO SCH ×2 (09:18→16:52)
[2017-10-12] MEDS: DUTASTERIDE (0.5 MG) 0.5 MG CAPSULE PO SCH (09:18)
[2017-10-12] MEDS: ASPIRIN 81 MG TAB.CHEW PO SCH (09:19)
[2017-10-12] MEDS: Z GUARD REMEDY 4 OZ OINT TP SCH ×2 (09:57→21:24)
[2017-10-12] MEDS: LATANOPROST EYE DROP 0.005% 2.5 ML BOTTLE LEFTEYE SCH ×2 (09:57→21:25)
--- NOTE | 2017-10-12 10:30 | NUR ---
WOUND CARE CONSULT: PT REFUSED SKIN ASSESSMENT. PT AGITATED AND COMBATIVE AT TIMES. PT NOTED TO HAVE STERI STRIP ABOVE RT EYEBROW. NO DRAINAGE NOTED. DEFER TO MD. ALL SKIN PROTECTION MEASURES IN PLACE AND DISCUSSED WITH NURSING STAFF. PT IS AMBULATORY AND CONTINENT.
--- NOTE | 2017-10-12 11:06 | NUR ---
Discharge Planning: ORIANA spoke with patient's daughter, Sydni [phone]. Sydni stated that the family is still unsure. They do not see much progress with their father and have reservations about caring for him immediately at home after his hospital discharge. ORIANA asked Sydni if it was okay to fax referrals so that, in the event that family is unable to provide care directly after hospital discharge, the patient has options. Sydni stated that it was okay. SW to fax to SNF facilities.
--- NOTE | 2017-10-12 11:21 | NUR ---
Discharge Planning: At family's request, ORIANA faxed to the following facilities: [place] [id number] [place] [address] / [phone] / fax # [phone] [facility], [address] [place] [address]. [place] [address] / [phone] / fax number [phone] Addendum: 10/13/17 at 1007 by YENIFER GASTELUM Per director of admissions, no beds available at [facility] Ull[facility] in admissions, [facility] will need to assess patient face to face
[2017-10-12] MEDS: INSULIN REGULAR, HUMAN 100 UNIT/ML 3 ML VIAL SQ PRN ×2 (14:12→17:15)
--- NOTE | 2017-10-12 15:34 | NUR ---
GPS/RN NOTE WAITING FOR PHARM TO DELIVERED TRIPLE ANTIBIOTIC. FOLLOW UP CALL IS MADE.
[2017-10-12 16:00] VITALS: BP 106/66
[2017-10-12] MEDS: NEOMY SULF/BACITRAC ZN/POLY 15 GM TUBE TP SCH (17:01)
--- NOTE | 2017-10-12 19:30 | NUR ---
GPS RN NOTE, RECEIVED PATIENT AWAKE AND IN BED, NO S/S OR COMPLAINTS OF PAIN AT THIS TIME. PATIENT IS DISPLAYING NO S/S OF APPARENT DISTRESS AT THIS TIME. PATIENT BREATHING IS UNLABORED WITH EQUAL RISE AND FALL OF THE CHEST. PATIENT IS ALERT AND ORIENTED X 1 ON ROOM AIR WITH A SPO2 OF 96%. PATIENT IS SELECTIVE WITH MEDICATION, CZECH SPEAKING, COMBATIVE WITH CARE, AND NEEDS REORIENTATION. PATIENT DENIES SUICIDE IDEATIONS AND HOMICIDAL IDEATIONS AT THIS TIME. PATIENT ASSISTED WITH TURNING AND REPOSITIONING Q2HR AND PRN FOR COMFORT AND CIRCULATION. PATIENT HAS NO NEEDS AT THIS TIME. PATIENT EDUCATED ON THE USE OF THE CALL MARTINEZ. PATIENT SIDE RAILS ARE UP X 2, BED IS LOCKED AND LOW, AND I WILL CONTINUE TO MONITOR THIS PATIENT Q 15 MIN WITH THE HELP OF STAFF.
[2017-10-12 19:53] VITALS: BP 110/69
[2017-10-12] MEDS: QUETIAPINE FUMARATE 100 MG TABLET PO SCH (21:25)
[2017-10-12] MEDS: TAMSULOSIN 0.4 MG CAP.SR.24H PO SCH (21:25)
--- NOTE | 2017-10-12 21:59 | NUR ---
GPS RN NOTE, PERFORMED ACCU CHECK ON PATIENT WITH A BLOOD SUGAR RESULT OF 120. NO INSULIN GIVEN PER SLIDING SCALE. WILL CONTINUE TO MONITOR THIS PATIENT.
[2017-10-13 08:00] VITALS: BP 103/75
[2017-10-13] MEDS: BLOOD SUGAR DIAGNOSTIC 1 EACH STRIP IN SCH ×4 (08:22→21:20)
[2017-10-13] MEDS: ASPIRIN 81 MG TAB.CHEW PO SCH (08:26)
[2017-10-13] MEDS: METFORMIN 500 MG TABLET PO SCH ×2 (08:26→17:00)
[2017-10-13] MEDS: METOPROLOL SUCCINATE 50 MG TAB.SR.24H PO SCH (08:27)
[2017-10-13] MEDS: EZETIMIBE 10 MG TABLET PO SCH (08:30)
[2017-10-13] MEDS: VALSARTAN 80 MG TABLET PO SCH (08:30)
[2017-10-13] MEDS: DUTASTERIDE (0.5 MG) 0.5 MG CAPSULE PO SCH (08:30)
[2017-10-13] MEDS: LINAGLIPTIN 5 MG TABLET PO SCH (08:30)
[2017-10-13] MEDS: HYDROCHLOROTHIAZIDE 25 MG TABLET PO SCH (08:30)
[2017-10-13] MEDS: QUETIAPINE FUMARATE 25 MG TABLET PO SCH ×2 (08:31→13:35)
[2017-10-13] MEDS: DIVALPROEX SODIUM 250 MG TABLET.DR PO SCH ×3 (08:31→17:00)
[2017-10-13] MEDS: NEOMY SULF/BACITRAC ZN/POLY 15 GM TUBE TP SCH (08:32)
[2017-10-13] MEDS: LATANOPROST EYE DROP 0.005% 2.5 ML BOTTLE LEFTEYE SCH ×2 (08:33→21:23)
[2017-10-13] MEDS: Z GUARD REMEDY 4 OZ OINT TP SCH ×2 (08:33→21:23)
--- NOTE | 2017-10-13 10:11 | NUR ---
Discharge Planning: Patient will be assessed by [facility], [address] [place] [address] Janna. SHAD Hernandez [id number] / [phone] / fax number [phone] tomorrow. Addendum: 10/16/17 at 1457 by YENIFER GASTELUM This was rescheduled as psychiatrist did not feel patient was ready for assessment.
[2017-10-13 16:09] VITALS: BP 101/70
--- NOTE | 2017-10-13 18:10 | NUR ---
FOR BILAT RIBS X-RAY PT UNCOOPERATIVE, KEEPS HIS ARMS ON HIS STOMACH DOES NOT LISTEN TERRITORY ACCOUNT MANAGER AWARE
[2017-10-13] MEDS: QUETIAPINE FUMARATE 100 MG TABLET PO SCH ×2 (18:35→21:20)
[2017-10-13 18:38] LABS: BASOPHILS # (AUTO) 0.1 /CMM (0.0-0.2); BASOPHILS % (AUTO) 0.6 % (0.0-2.0); EOSINOPHILS # (AUTO) 0.1 /CMM (0.0-0.7); EOSINOPHILS % (AUTO) 0.7 % (0.0-6.0); HEMATOCRIT 39 % (39-51); HEMOGLOBIN 13.3 g/dL (13.5-17.5); LYMPHOCYTES # (AUTO) 1.2 /CMM (0.8-4.8); LYMPHOCYTES % (AUTO) 11.9 % (20.0-44.0); MEAN CORPUSCULAR HEMOGLOBIN 31 PG (26.0-33.0); MEAN CORPUSCULAR HGB CONC 34 g/dl (31.0-36.0); MEAN CORPUSCULAR VOLUME 90 fL (80-96); MONOCYTES # (AUTO) 0.6 /CMM (0.1-1.30); MONOCYTES % (AUTO) 6.2 % (2.0-12.0); NEUTROPHILS # (AUTO) 8.3 /CMM (1.8-8.9); NEUTROPHILS % (AUTO) 80.6 % (43.0-81.0); PLATELET COUNT (AUTO) 192 /CMM (150-450); RDW COEFFICIENT OF VARIATION 12.8 (11.5-15.0); RED BLOOD CELL COUNT(AUTO) 4.37 MIL/uL (4.5-6.0); WHITE BLOOD COUNT (AUTO) 10.3 K/uL (4.3-11.0)
[2017-10-13 18:46] LABS: CALCIUM, SERUM 9.1 mg/dL (8.5-10.1); CREATININE 1.3 mg/dL (0.6-1.3); POTASSIUM 4.4 mmol/L (3.5-5.1)
[2017-10-13 20:44] VITALS: BP 106/71
[2017-10-13] MEDS: TAMSULOSIN 0.4 MG CAP.SR.24H PO SCH (21:20)
[2017-10-13] MEDS: INSULIN REGULAR, HUMAN 100 UNIT/ML 3 ML VIAL SQ PRN (21:36)
[2017-10-14] MEDS: BLOOD SUGAR DIAGNOSTIC 1 EACH STRIP IN SCH ×4 (07:40→21:20)
[2017-10-14] MEDS: INSULIN REGULAR, HUMAN 100 UNIT/ML 3 ML VIAL SQ PRN ×2 (07:43→12:07)
[2017-10-14 08:00] VITALS: BP 97/63
[2017-10-14] MEDS: QUETIAPINE FUMARATE 100 MG TABLET PO SCH ×4 (08:25→21:17)
[2017-10-14] MEDS: LATANOPROST EYE DROP 0.005% 2.5 ML BOTTLE LEFTEYE SCH ×2 (08:25→21:19)
[2017-10-14] MEDS: ASPIRIN 81 MG TAB.CHEW PO SCH (08:25)
[2017-10-14] MEDS: LINAGLIPTIN 5 MG TABLET PO SCH (08:25)
[2017-10-14] MEDS: METFORMIN 500 MG TABLET PO SCH ×2 (08:25→16:14)
[2017-10-14] MEDS: DIVALPROEX SODIUM 250 MG TABLET.DR PO SCH ×2 (08:25→13:19)
[2017-10-14] MEDS: EZETIMIBE 10 MG TABLET PO SCH (08:25)
[2017-10-14] MEDS: DUTASTERIDE (0.5 MG) 0.5 MG CAPSULE PO SCH (08:25)
[2017-10-14] MEDS: NEOMY SULF/BACITRAC ZN/POLY 15 GM TUBE TP SCH (08:26)
[2017-10-14] MEDS: Z GUARD REMEDY 4 OZ OINT TP SCH ×2 (08:26→21:20)
[2017-10-14] MEDS: VALSARTAN 80 MG TABLET PO SCH (10:10)
[2017-10-14] MEDS: METOPROLOL SUCCINATE 50 MG TAB.SR.24H PO SCH (10:10)
[2017-10-14] MEDS: HYDROCHLOROTHIAZIDE 25 MG TABLET PO SCH (10:27)
[2017-10-14] MEDS: LORAZEPAM 0.5 MG TABLET PO PRN (13:29)
[2017-10-14 16:00] VITALS: BP 100/69
--- NOTE | 2017-10-14 17:28 | NUR ---
pt refused finger stick for accucheck.
[2017-10-14 19:54] VITALS: BP 110/62
[2017-10-14] MEDS: TAMSULOSIN 0.4 MG CAP.SR.24H PO SCH (21:17)
[2017-10-14] MEDS: DIVALPROEX SODIUM 125 MG CAP.SPRINK PO SCH (21:17)
[2017-10-15 08:00] VITALS: BP 100/63
[2017-10-15] MEDS: BLOOD SUGAR DIAGNOSTIC 1 EACH STRIP IN SCH ×4 (08:04→21:42)
[2017-10-15] MEDS: METOPROLOL SUCCINATE 50 MG TAB.SR.24H PO SCH (09:00)
[2017-10-15] MEDS: HYDROCHLOROTHIAZIDE 25 MG TABLET PO SCH (09:00)
[2017-10-15] MEDS: VALSARTAN 80 MG TABLET PO SCH (09:00)
[2017-10-15] MEDS: DIVALPROEX SODIUM 125 MG CAP.SPRINK PO SCH ×2 (09:02→21:41)
[2017-10-15] MEDS: ASPIRIN 81 MG TAB.CHEW PO SCH (09:02)
[2017-10-15] MEDS: LINAGLIPTIN 5 MG TABLET PO SCH (09:02)
[2017-10-15] MEDS: EZETIMIBE 10 MG TABLET PO SCH (09:02)
[2017-10-15] MEDS: METFORMIN 500 MG TABLET PO SCH ×2 (09:02→16:16)
[2017-10-15] MEDS: DUTASTERIDE (0.5 MG) 0.5 MG CAPSULE PO SCH (09:02)
[2017-10-15] MEDS: QUETIAPINE FUMARATE 100 MG TABLET PO SCH ×4 (09:02→21:41)
[2017-10-15] MEDS: LATANOPROST EYE DROP 0.005% 2.5 ML BOTTLE LEFTEYE SCH ×2 (09:35→21:40)
[2017-10-15] MEDS: NEOMY SULF/BACITRAC ZN/POLY 15 GM TUBE TP SCH (09:35)
[2017-10-15] MEDS: Z GUARD REMEDY 4 OZ OINT TP SCH ×2 (09:42→21:41)
[2017-10-15] MEDS: INSULIN REGULAR, HUMAN 100 UNIT/ML 3 ML VIAL SQ PRN (13:38)
--- NOTE | 2017-10-15 13:40 | NUR ---
GPS/RN-NOTES PATIENT BLOOD SUGAR WAS 151MG/DL, 2 UNITS OF R INSULIN GIVEN ORDERED.
[2017-10-15 16:00] VITALS: BP 140/89
--- NOTE | 2017-10-15 18:00 | NUR ---
GPS/RN-NOTES POSTAGE MACHINE OPERATOR STAFF REPORTED PATIENT HAD DRY DIAPER SINCE THIS MORNING, SECOND BALLER MARIE IN THE UNIT WITH VERBAL ORDER TO DO IN AND OUT NOW, AND IN AND OUT URINE CATHETERIZATION TID IF NO URINE. NOTED AND CARRIED OUT.
--- NOTE | 2017-10-15 18:51 | NUR ---
GPS/RN NOTES PRIOR TO THE IN AND OUT CATHETERIZATION LABORER PIE BAKERY DID BLADDER SCAN WITH URINE RESIDUAL OF 641ML. GAS FURNACE INSTALLER MARIE MADE AWARE AND STATED TO GO AHEAD AND DO THE IN AND OUT CATHETERIZATION. LABORER PIE BAKERY ABOUT TO PERFORM THE SAID ORDER BUT PATIENT DID FREELY URINATE. BLADDER SCANNER WAS PERFORM AGAIN AFTER PATIENT URINATE WITH THE RESIDUAL OF 20ML. IMAN MARIE MADE AWARE AND STATED TO CANCEL THE IN AND OUT CATH.
[2017-10-15 20:00] VITALS: BP 111/54
[2017-10-15] MEDS: TEMAZEPAM 7.5 MG CAPSULE PO PRN (21:41)
[2017-10-15] MEDS: TAMSULOSIN 0.4 MG CAP.SR.24H PO SCH (21:41)
[2017-10-16 08:27] VITALS: BP 102/58
[2017-10-16] MEDS: BLOOD SUGAR DIAGNOSTIC 1 EACH STRIP IN SCH ×4 (08:36→21:17)
[2017-10-16] MEDS: HYDROCHLOROTHIAZIDE 25 MG TABLET PO SCH (08:43)
[2017-10-16] MEDS: METOPROLOL SUCCINATE 50 MG TAB.SR.24H PO SCH (08:44)
[2017-10-16] MEDS: VALSARTAN 80 MG TABLET PO SCH (08:44)
[2017-10-16] MEDS: Z GUARD REMEDY 4 OZ OINT TP SCH ×2 (09:00→21:17)
[2017-10-16] MEDS: LATANOPROST EYE DROP 0.005% 2.5 ML BOTTLE LEFTEYE SCH ×2 (10:21→21:16)
[2017-10-16] MEDS: INSULIN REGULAR, HUMAN 100 UNIT/ML 3 ML VIAL SQ PRN ×3 (10:22→21:40)
[2017-10-16] MEDS: DIVALPROEX SODIUM 125 MG CAP.SPRINK PO SCH ×2 (10:27→21:17)
[2017-10-16] MEDS: ASPIRIN 81 MG TAB.CHEW PO SCH (10:27)
[2017-10-16] MEDS: EZETIMIBE 10 MG TABLET PO SCH (10:27)
[2017-10-16] MEDS: METFORMIN 500 MG TABLET PO SCH ×2 (10:27→18:09)
[2017-10-16] MEDS: QUETIAPINE FUMARATE 100 MG TABLET PO SCH ×4 (10:27→21:16)
[2017-10-16] MEDS: DUTASTERIDE (0.5 MG) 0.5 MG CAPSULE PO SCH (10:27)
[2017-10-16] MEDS: LINAGLIPTIN 5 MG TABLET PO SCH (10:27)
[2017-10-16] MEDS: NEOMY SULF/BACITRAC ZN/POLY 15 GM TUBE TP SCH (10:28)
[2017-10-16] MEDS: ERGOCALCIFEROL (VITAMIN D 2) 50,000 UNIT CAPSULE PO SCH (10:29)
--- NOTE | 2017-10-16 12:20 | NUR ---
GPS/RN PT REFUSED TO LET RN TO DO ACCUCHECK . PT DAUGHTER WHO WAS AT THE BEDSIDE ALSO TRIED TO CONVINCE HER FATHER, BUT PT REFUSED NEVERTHELESS, BECOME VERY AGITATED AND TRIED TO HIT THE STUFF.
--- NOTE | 2017-10-16 14:57 | NUR ---
Discharge Planning: Patient will be assessed by Donna from [facility], [address] [place] [address]. [place] [address] / [phone] / fax number [phone] on October 19.
--- NOTE | 2017-10-16 15:01 | NUR ---
Discharge Planning: SW spoke with patient's daughter, Sydni [phone] and updated her on patient's condition and on discharge planning. ORIANA informed Sydni that patient will be assessed by [facility]. Sydni stated that she was happy with that and that the family was open to other SNFs if this one did not work out.
[2017-10-16 16:00] VITALS: BP 102/52
[2017-10-16 20:00] VITALS: BP 118/81
[2017-10-16] MEDS: TAMSULOSIN 0.4 MG CAP.SR.24H PO SCH (21:16)
[2017-10-17 08:00] VITALS: BP 124/81
[2017-10-17] MEDS: BLOOD SUGAR DIAGNOSTIC 1 EACH STRIP IN SCH ×4 (08:04→22:06)
[2017-10-17] MEDS: METFORMIN 500 MG TABLET PO SCH ×2 (09:08→17:14)
[2017-10-17] MEDS: DIVALPROEX SODIUM 125 MG CAP.SPRINK PO SCH ×2 (09:09→21:54)
[2017-10-17] MEDS: EZETIMIBE 10 MG TABLET PO SCH (09:09)
[2017-10-17] MEDS: ASPIRIN 81 MG TAB.CHEW PO SCH (09:09)
[2017-10-17] MEDS: QUETIAPINE FUMARATE 100 MG TABLET PO SCH ×4 (09:09→21:55)
[2017-10-17] MEDS: LINAGLIPTIN 5 MG TABLET PO SCH (09:09)
[2017-10-17] MEDS: DUTASTERIDE (0.5 MG) 0.5 MG CAPSULE PO SCH (09:09)
[2017-10-17] MEDS: METOPROLOL SUCCINATE 50 MG TAB.SR.24H PO SCH (09:10)
[2017-10-17] MEDS: VALSARTAN 80 MG TABLET PO SCH (09:10)
[2017-10-17] MEDS: HYDROCHLOROTHIAZIDE 25 MG TABLET PO SCH (09:11)
[2017-10-17] MEDS: NEOMY SULF/BACITRAC ZN/POLY 15 GM TUBE TP SCH (09:17)
[2017-10-17] MEDS: LATANOPROST EYE DROP 0.005% 2.5 ML BOTTLE LEFTEYE SCH ×2 (09:17→21:54)
[2017-10-17] MEDS: INSULIN REGULAR, HUMAN 100 UNIT/ML 3 ML VIAL SQ PRN ×4 (09:24→22:08)
--- NOTE | 2017-10-17 09:27 | NUR ---
GPS/RN-NOTES PATIENT BLOOD SUGAR WAS 140 MG/DL, 2 UNITS OF R INSULIN GIVEN ORDERED.
[2017-10-17] MEDS: Z GUARD REMEDY 4 OZ OINT TP SCH ×2 (09:32→21:55)
--- NOTE | 2017-10-17 12:24 | NUR ---
GPS/RN-NOTES PATIENT BLOOD SUGAR WAS 238 MG/DL, 4 UNITS OF R INSULIN GIVEN ORDERED.
[2017-10-17 16:00] VITALS: BP 129/58
--- NOTE | 2017-10-17 18:00 | NUR ---
GPS/RN-NOTES UNABLE TO GET URINE SPECIMEN DUE TO PATIENT IS UNCOOPERATIVE. WILL ENDORSE TO NIGHT NURSE TO F/U AND FOR CONTINUITY OF CARE.
[2017-10-17 20:00] VITALS: BP 101/63
[2017-10-17] MEDS: TAMSULOSIN 0.4 MG CAP.SR.24H PO SCH (21:54)
[2017-10-18 08:27] VITALS: BP 100/59
[2017-10-18] MEDS: VALSARTAN 80 MG TABLET PO SCH (09:00)
[2017-10-18] MEDS: METOPROLOL SUCCINATE 50 MG TAB.SR.24H PO SCH (09:00)
[2017-10-18] MEDS: HYDROCHLOROTHIAZIDE 25 MG TABLET PO SCH (09:00)
[2017-10-18] MEDS: EZETIMIBE 10 MG TABLET PO SCH (09:50)
[2017-10-18] MEDS: LINAGLIPTIN 5 MG TABLET PO SCH (09:50)
[2017-10-18] MEDS: DIVALPROEX SODIUM 125 MG CAP.SPRINK PO SCH ×2 (09:53→21:51)
[2017-10-18] MEDS: METFORMIN 500 MG TABLET PO SCH ×2 (09:53→17:09)
[2017-10-18] MEDS: DUTASTERIDE (0.5 MG) 0.5 MG CAPSULE PO SCH (09:53)
[2017-10-18] MEDS: QUETIAPINE FUMARATE 100 MG TABLET PO SCH ×4 (09:53→21:51)
[2017-10-18] MEDS: ASPIRIN 81 MG TAB.CHEW PO SCH (09:53)
[2017-10-18] MEDS: NEOMY SULF/BACITRAC ZN/POLY 15 GM TUBE TP SCH (09:56)
[2017-10-18] MEDS: Z GUARD REMEDY 4 OZ OINT TP SCH ×2 (09:56→21:00)
[2017-10-18] MEDS: LATANOPROST EYE DROP 0.005% 2.5 ML BOTTLE LEFTEYE SCH ×2 (09:57→21:50)
[2017-10-18] MEDS: BLOOD SUGAR DIAGNOSTIC 1 EACH STRIP IN SCH ×4 (10:22→21:52)
[2017-10-18] MEDS: INSULIN REGULAR, HUMAN 100 UNIT/ML 3 ML VIAL SQ PRN ×3 (10:25→21:59)
--- NOTE | 2017-10-18 10:30 | NUR ---
HELD BP MEDS DUE TO DECREASED BP OF 83/57, HR 69. HAS BEEN MADE AWARE, WILL CONTINUE TO MONITOR.
[2017-10-18 16:10] VITALS: BP 135/69
[2017-10-18 19:53] VITALS: BP 82/48
[2017-10-18 21:00] VITALS: BP 98/68
[2017-10-18] MEDS: TAMSULOSIN 0.4 MG CAP.SR.24H PO SCH (21:54)
[2017-10-19 08:00] VITALS: BP 87/50
--- NOTE | 2017-10-19 08:00 | NUR ---
GPS/RN BS 134, 2 UNITS REGULAR INSULIN ADMINISTERED.WILL CONTINUE TO MONITOR.
[2017-10-19] MEDS: BLOOD SUGAR DIAGNOSTIC 1 EACH STRIP IN SCH ×4 (08:51→22:01)
[2017-10-19] MEDS: METOPROLOL SUCCINATE 50 MG TAB.SR.24H PO SCH (09:00)
[2017-10-19] MEDS: HYDROCHLOROTHIAZIDE 25 MG TABLET PO SCH (09:00)
[2017-10-19] MEDS: LATANOPROST EYE DROP 0.005% 2.5 ML BOTTLE LEFTEYE SCH ×3 (09:00→21:28)
[2017-10-19] MEDS: ASPIRIN 81 MG TAB.CHEW PO SCH ×2 (09:00→09:48)
[2017-10-19] MEDS: QUETIAPINE FUMARATE 100 MG TABLET PO SCH ×5 (09:00→21:28)
[2017-10-19] MEDS: LINAGLIPTIN 5 MG TABLET PO SCH ×2 (09:00→09:49)
[2017-10-19] MEDS: DUTASTERIDE (0.5 MG) 0.5 MG CAPSULE PO SCH ×2 (09:00→09:49)
[2017-10-19] MEDS: METFORMIN 500 MG TABLET PO SCH ×3 (09:00→16:28)
[2017-10-19] MEDS: NEOMY SULF/BACITRAC ZN/POLY 15 GM TUBE TP SCH ×2 (09:00→09:50)
[2017-10-19] MEDS: DIVALPROEX SODIUM 125 MG CAP.SPRINK PO SCH ×3 (09:00→21:28)
[2017-10-19] MEDS: EZETIMIBE 10 MG TABLET PO SCH ×2 (09:00→09:49)
[2017-10-19] MEDS: VALSARTAN 80 MG TABLET PO SCH (09:00)
[2017-10-19] MEDS: INSULIN REGULAR, HUMAN 100 UNIT/ML 3 ML VIAL SQ PRN (10:32)
--- NOTE | 2017-10-19 10:34 | NUR ---
GPS/RN PATIENT REFUSED ALL MORNING MEDICATION, EXPLAINED RISKS AND BENEFITS, SPIT OUT MEDS AT STAFF, WILL CONTINUE TO ENCOURAGE TO COMPLY WITH MD REGIMEN.
--- NOTE | 2017-10-19 10:36 | NUR ---
GPS/RN PATIENT AWOKE FROM SLEEPING, CONSUMED 50 % OF MEAL, BS 134. ADMINISTERED 2 UNITS REGULAR INSULIN, WILL CONTINUE TO MONITOR.
[2017-10-19 10:38] VITALS: BP 99/63
[2017-10-19] MEDS: Z GUARD REMEDY 4 OZ OINT TP SCH ×2 (10:40→21:30)
--- NOTE | 2017-10-19 11:56 | NUR ---
Discharge Planning: SW was informed by Donna from [facility], [address] [place] [address]. [place] [address] / [phone] / fax number [phone] that was accepted to the facility. ORIANA called and informed patient's Sydni [phone]. Sydni stated that she would like to tour facility. ORIANA provided her with facility's phone number. ORIANA made Iveth [human service coordinator] aware of this.
--- NOTE | 2017-10-19 12:00 | NUR ---
GPS/RN PATIENT ADAMANTLY REFUSED BS CHECK X 3, YELLING AND STRIKING OUT AT STAFF,WILL CONTINUE TO ENCOURAGE TO COMPLY WITH MD REGIMEN.
[2017-10-19 16:00] VITALS: BP 90/59
--- NOTE | 2017-10-19 17:00 | NUR ---
GPS/RN BS 108, NO COVERAGE NEEDED.
--- NOTE | 2017-10-19 19:30 | NUR ---
GPS RN NOTE, RECEIVED PATIENT AWAKE AND IN BED, NO S/S OR COMPLAINTS OF PAIN AT THIS TIME. PATIENT IS DISPLAYING NO S/S OF APPARENT DISTRESS AT THIS TIME. PATIENT BREATHING IS UNLABORED WITH EQUAL RISE AND FALL OF THE CHEST. PATIENT IS ALERT AND ORIENTED X 1 ON ROOM AIR WITH A SPO2 OF 93%. PATIENT IS [place]SHALL[place] SPEAKING ONLY. PATIENT HAS A ONE TO ONE SITTER FOR BEING COMBATIVE WITH CARE AND A FALL RISK. PATIENT IS COMPLIANT WITH MEDICATION, ANXIOUS, CONFUSED, AND NEEDS REORIENTATION. PATIENT DENIES SUICIDE IDEATIONS AND HOMICIDAL IDEATIONS AT THIS TIME. PATIENT ASSISTED WITH TURNING AND REPOSITIONING Q2HR AND PRN FOR COMFORT AND CIRCULATION. PATIENT HAS NO NEEDS AT THIS TIME. PATIENT EDUCATED ON THE USE OF THE CALL MARTINEZ. PATIENT SIDE RAILS ARE UP X 2, BED IS LOCKED AND LOW, AND I WILL CONTINUE TO MONITOR THIS PATIENT Q 15 MIN WITH THE HELP OF STAFF.
[2017-10-19 19:38] VITALS: BP 124/67
[2017-10-19] MEDS: TAMSULOSIN 0.4 MG CAP.SR.24H PO SCH (21:32)
--- NOTE | 2017-10-19 22:01 | NUR ---
GPS RN NOTE, PERFORMED ACCU CHECK ON PATIENT WITH A BLOOD SUGAR RESULT OF 97. NO INSULIN GIVEN PER SLIDING SCALE. WILL CONTINUE TO MONITOR THIS PATIENT.
[2017-10-20] MEDS: BLOOD SUGAR DIAGNOSTIC 1 EACH STRIP IN SCH ×4 (07:46→22:35)
[2017-10-20 08:00] VITALS: BP 108/51
[2017-10-20] MEDS: VALSARTAN 80 MG TABLET PO SCH (09:00)
[2017-10-20] MEDS: METOPROLOL SUCCINATE 50 MG TAB.SR.24H PO SCH (09:00)
[2017-10-20] MEDS: HYDROCHLOROTHIAZIDE 25 MG TABLET PO SCH (09:00)
[2017-10-20] MEDS: LINAGLIPTIN 5 MG TABLET PO SCH (09:20)
[2017-10-20] MEDS: METFORMIN 500 MG TABLET PO SCH ×2 (09:20→16:48)
[2017-10-20] MEDS: DUTASTERIDE (0.5 MG) 0.5 MG CAPSULE PO SCH (09:21)
[2017-10-20] MEDS: EZETIMIBE 10 MG TABLET PO SCH (09:21)
[2017-10-20] MEDS: QUETIAPINE FUMARATE 100 MG TABLET PO SCH ×4 (09:21→21:03)
[2017-10-20] MEDS: ASPIRIN 81 MG TAB.CHEW PO SCH (09:21)
[2017-10-20] MEDS: DIVALPROEX SODIUM 125 MG CAP.SPRINK PO SCH ×2 (09:22→21:03)
[2017-10-20] MEDS: LATANOPROST EYE DROP 0.005% 2.5 ML BOTTLE LEFTEYE SCH ×2 (09:25→21:04)
[2017-10-20] MEDS: Z GUARD REMEDY 4 OZ OINT TP SCH ×2 (09:25→21:05)
[2017-10-20] MEDS: NEOMY SULF/BACITRAC ZN/POLY 15 GM TUBE TP SCH (09:25)
[2017-10-20] MEDS: BOOST PLUS FOOD-VANILLA 237 ML BOX PO SCH ×2 (11:30→16:50)
[2017-10-20] MEDS: INSULIN REGULAR, HUMAN 100 UNIT/ML 3 ML VIAL SQ PRN ×2 (12:39→22:37)
--- NOTE | 2017-10-20 12:40 | NUR ---
GPS/RN-NOTES PATIENT BLOOD SUGAR WAS 214MG/DL, 4 UNITS OF R INSULIN GIVEN PRN ORDER.
[2017-10-20 15:57] VITALS: BP 96/55
[2017-10-20 19:57] VITALS: BP 102/52
[2017-10-20] MEDS: TAMSULOSIN 0.4 MG CAP.SR.24H PO SCH (21:03)
[2017-10-20 23:12] VITALS: BP 103/60
[2017-10-21 08:00] VITALS: BP 100/61
[2017-10-21] MEDS: BOOST PLUS FOOD-VANILLA 237 ML BOX PO SCH (08:00)
[2017-10-21] MEDS: BLOOD SUGAR DIAGNOSTIC 1 EACH STRIP IN SCH ×2 (08:16→12:33)
[2017-10-21 08:35] VITALS: BP 100/61
[2017-10-21] MEDS: VALSARTAN 80 MG TABLET PO SCH (08:35)
[2017-10-21] MEDS: LINAGLIPTIN 5 MG TABLET PO SCH (08:35)
[2017-10-21] MEDS: DIVALPROEX SODIUM 125 MG CAP.SPRINK PO SCH (08:35)
[2017-10-21] MEDS: QUETIAPINE FUMARATE 100 MG TABLET PO SCH ×2 (08:36→12:18)
[2017-10-21] MEDS: EZETIMIBE 10 MG TABLET PO SCH (08:36)
[2017-10-21] MEDS: Z GUARD REMEDY 4 OZ OINT TP SCH (08:36)
[2017-10-21] MEDS: ASPIRIN 81 MG TAB.CHEW PO SCH (08:36)
[2017-10-21] MEDS: LATANOPROST EYE DROP 0.005% 2.5 ML BOTTLE LEFTEYE SCH (08:36)
[2017-10-21] MEDS: METFORMIN 500 MG TABLET PO SCH (08:36)
[2017-10-21] MEDS: NEOMY SULF/BACITRAC ZN/POLY 15 GM TUBE TP SCH (08:36)
[2017-10-21] MEDS ORDERED: METOPROLOL SUCCINATE 25 MG TAB.SR.24H PO SCH (09:00)
[2017-10-21 09:13] LABS: BASOPHILS % (AUTO) 0.4 % (0.0-2.0); EOSINOPHILS # (AUTO) 0.2 /CMM (0.0-0.7); EOSINOPHILS % (AUTO) 2.5 % (0.0-6.0); HEMATOCRIT 40 % (39-51); HEMOGLOBIN 13.4 g/dL (13.5-17.5); LYMPHOCYTES # (AUTO) 1.9 /CMM (0.8-4.8); LYMPHOCYTES % (AUTO) 31.3 % (20.0-44.0); MEAN CORPUSCULAR HEMOGLOBIN 30 PG (26.0-33.0); MEAN CORPUSCULAR HGB CONC 34 g/dl (31.0-36.0); MEAN CORPUSCULAR VOLUME 89 fL (80-96); MONOCYTES # (AUTO) 0.6 /CMM (0.1-1.30); MONOCYTES % (AUTO) 9.6 % (2.0-12.0); NEUTROPHILS # (AUTO) 3.4 /CMM (1.8-8.9); NEUTROPHILS % (AUTO) 56.2 % (43.0-81.0); PLATELET COUNT (AUTO) 195 /CMM (150-450); RDW COEFFICIENT OF VARIATION 12.7 (11.5-15.0); RED BLOOD CELL COUNT(AUTO) 4.42 MIL/uL (4.5-6.0)
--- NOTE | 2017-10-21 09:44 | NUR ---
Discharge Planning: Patient's daughter Sydni [phone] called [facility] and informed her that she was able to tour the facility and she "really liked it." Sydni stated that the family is in agreement with discharging patient today to [facility]. [facility] informed the facility.
[2017-10-21 09:47] LABS: CALCIUM, SERUM 8.7 mg/dL (8.5-10.1); CREATININE 0.9 mg/dL (0.6-1.3); MAGNESIUM 1.4 mg/dL (1.8-2.4); PHOSPHORUS 3.5 mg/dL (2.5-4.9); POTASSIUM 5.2 mmol/L (3.5-5.1)
--- NOTE | 2017-10-21 10:01 | NUR ---
Discharge Note: Patient will be discharged to [facility], [address] [place] [address] / [phone] / fax number [phone] via ambulance transportation arranged by through [employer], trip #[id number]. Patients daughter Sydni [phone] and family are aware and in agreement with the discharge plan. Upon discharge, patient seems cooperative. Patient denies suicidal / homicidal ideation. Patient denies hallucinations. At the facility, patient will be seen by classification clerk Dr. Ryan Sheridan [address], [place] [address] [phone]. Patient will also be followed by psychiatrist Dr. Wilson [address] [address], [place] [address] [phone].
--- NOTE | 2017-10-21 10:55 | NUR ---
PATIENT POTASSIUM LEVELS ARE 5.2. CALLED DR. SKELTON AND MADE HIM AWARE.
[2017-10-21] MEDS ORDERED: MAGNESIUM OXIDE 400 MG TABLET PO ONE (11:00)
[2017-10-21] MEDS: INSULIN REGULAR, HUMAN 100 UNIT/ML 3 ML VIAL SQ PRN (12:43)
--- NOTE | 2017-10-21 12:44 | NUR ---
DISCHARGE NOTE: PATIENT LEFT THE UNIT AT 1245 VIA AMBULANCE. BELINDA ORDERED DISCHARGE ORDER, DISCONTINUE HOLD, AND MED RECON. DR. SKELTON MADE AWARE AND MED RECON. PATIENT IS MEDICALLY STABLE. V/S STABLE. DENIES SI/HI DURING DISCHARGE. PATIENT LEFT WITH BELONGINGS. PATIENT DID NOT TOLERATE AND REFUSED SKIN ASSESSMENT AND PICTURES. PATIENT REFUSED TO SIGN PAPERS. EXIT CARE GIVEN AND EXPLAINED TO PATIENT. REPORT WAS GIVEN TO TILA AT [facility].
== END 2017-10-21 12:45 | DRG 885 ==
LOC: ER 12:46 → GPS 16:11
PROVIDERS: ADMIT Psychiatry & Neurology Psychiatry; ATTEND Psychiatry & Neurology Psychiatry
DX: F29 Unspecified psychosis not due to a substance or known physiological condition (principal); N17.0 Acute kidney failure with tubular necrosis; E11.65 Type 2 diabetes mellitus with hyperglycemia; E78.5 Hyperlipidemia, unspecified; D64.9 Anemia, unspecified; S60.811A Abrasion of right wrist, initial encounter; F03.90 Unspecified dementia, unspecified severity, without behavioral disturbance, psychotic disturbance, mood disturbance, and anxiety; I10 Essential (primary) hypertension; K21.9 Gastro-esophageal reflux disease without esophagitis; Z82.49 Family history of ischemic heart disease and other diseases of the circulatory system; Z79.84 Long term (current) use of oral hypoglycemic drugs; Z79.899 Other long term (current) drug therapy; Z73.6 Limitation of activities due to disability; F32.9 Major depressive disorder, single episode, unspecified; I70.0 Atherosclerosis of aorta; R07.89 Other chest pain; N40.0 Benign prostatic hyperplasia without lower urinary tract symptoms; S01.111A Laceration without foreign body of right eyelid and periocular area, initial encounter; X58.XXXA Exposure to other specified factors, initial encounter; Y92.10 Unspecified residential institution as the place of occurrence of the external cause; S80.212A Abrasion, left knee, initial encounter; S80.211A Abrasion, right knee, initial encounter; S60.812A Abrasion of left wrist, initial encounter
CPT/HCPCS: 36415; 70450-TC; 71111-TC; 80048-TC; 80053-TC; 80061-TC; 80164-TC; 80305; 81000-TC; 82945-TC; 82962-TC; 83735-TC; 84100-TC; 84484-TC; 85025-TC; 87081-TC; 87086-TC; A4606; G0480; J1815; J2060; J3490; Z7610